=== PATIENT | female | born 1945 | race Caucasian/White ===

== ENCOUNTER 2018-09-14 00:20 | Emergency (ER) | payer MEDICARE ==
[~2018-09-14] VITALS: Ht 167.6 cm; Wt 90.9 kg
[~2018-09-14 00:20] MED LIST: ELIQUIS2.5 MG PO; HYDROCHLOROTHIA25 MG PO; HYDROCODONE-APA1 TAB PO; METOPROLOL TART50 MG PO; MS CONTIN30 MG PO; SYNTHROID88 MCG PO; XANAX1 MG PO
[2018-09-14 00:23] VITALS: Ht 167.6 cm; Wt 90.9 kg
[2018-09-14 01:39] LABS: BASOPHILS 0.2 % (0-2); EOSINOPHILS 0.6 % (0-7); HEMATOCRIT 31.6 % (36.0-48.0); HEMOGLOBIN 9.8 g/dL (12-16); IMMATURE GRANULOCYTES 0.2 % (0-5); MCH 24.1 pg (26.0-34.0); MCV 77.8 fL (80.0-100.0); MEAN PLATELET VOLUME 9.5 fL (7.4-10.4); MONOCYTES 15.5 % (2-11); NEUTROPHILS 52.5 % (40-80); PLATELET COUNT 383 10x3/uL (130-400); RBC 4.06 10x6/uL (4.00-5.40); RDW 15.8 % (11.5-14.5); WBC 9.5 10x3/uL (4.8-10.8)
[2018-09-14 01:52] LABS: ALBUMIN 3.3 g/dL (3.4-5.0); ALKALINE PHOSPHATASE 87 U/L (46-116); ALT (SGPT) 17 U/L (10-68); BILIRUBIN - TOTAL 0.85 mg/dL (0.2-1.3); CALC OSMOLALITY 278 mosm/kg (275-300); CALCIUM 8.9 mg/dL (8.5-10.1); CARBON DIOXIDE 25.1 mmol/L (21.0-32.0); CHLORIDE - SERUM 104 mmol/L (98-107); CREATININE - SERUM 0.8 mg/dL (0.6-1.3); GLUCOSE 104 mg/dL (74-106); POTASSIUM - SERUM 4.2 mmol/L (3.5-5.1); SODIUM 138 mmol/L (136-145); UREA NITROGEN 20 mg/dL (7-18); eGFR NON AFRICAN AMERICAN 75 mL/min (90-120)
[2018-09-14 02:03] LABS: APPEARANCE CLEAR (CLEAR); BILIRUBIN NEGATIVE (NEGATIVE); COLOR YELLOW (YELLOW); GLUCOSE NEGATIVE (NEGATIVE); KETONE NEGATIVE (NEGATIVE); NITRITE NEGATIVE (NEGATIVE); PROTEIN NEGATIVE (NEGATIVE); SPECIFIC GRAVITY 1.015 (1.005-1.020); UROBILINOGEN NORMAL (NORMAL)
[2018-09-14] MEDS ORDERED: ATIVAN1 MG PO (04:00)
[2018-09-14 04:53] VITALS: BP 168/70
== END 2018-09-14 04:25 | disposition home or self-care (01) ==
LOC: D.ER 00:20
PROVIDERS: Family Medicine
DX: F41.9 Anxiety disorder, unspecified (principal); R53.1 Weakness; I10 Essential (primary) hypertension

== ENCOUNTER 2018-11-09 13:17 | Inpatient (IN) | payer MEDICARE ==
[~2018-11-09] VITALS: Ht 167.6 cm; Wt 83.9 kg
[~2018-11-09 13:17] MED LIST changes: +ATIVAN1 MG PO; -HYDROCODONE-APA1 TAB PO; +NORCO PO
[2018-11-09 14:06] VITALS: BP 165/78
[2018-11-09 14:14] LABS: APPEARANCE CLEAR (CLEAR); COLOR YELLOW (YELLOW)
[2018-11-09 14:15] LABS: BILIRUBIN NEGATIVE (NEGATIVE); GLUCOSE NEGATIVE (NEGATIVE); KETONE NEGATIVE (NEGATIVE); NITRITE NEGATIVE (NEGATIVE); PROTEIN 1+ mg/dL (NEGATIVE); UROBILINOGEN NORMAL (NORMAL)
[2018-11-09 14:21] LABS: BACTERIA MODERATE /hpf (NONE SEEN); EPITHELIAL CELLS 0-5 /hpf (0-5); MUCUS <1+ /lpf (NONE SEEN); RED CELLS - URINE 0-5 /hpf (0-5); WHITE CELLS - URINE 0-5 /hpf (0-5)
[2018-11-09 14:42] LABS: BASOPHILS 0.1 % (0-2); EOSINOPHILS 0.4 % (0-7); HEMATOCRIT 32.7 % (36.0-48.0); HEMOGLOBIN 10.1 g/dL (12-16); IMMATURE GRANULOCYTES 0.4 % (0-5); LYMPHOCYTES 26.2 % (15-50); MCH 22.5 pg (26.0-34.0); MCHC 30.9 g/dL (31.0-37.0); MEAN PLATELET VOLUME 9.2 fL (7.4-10.4); NEUTROPHILS 64.9 % (40-80); RBC 4.48 10x6/uL (4.00-5.40); RDW 17.7 % (11.5-14.5); WBC 8.3 10x3/uL (4.8-10.8)
[2018-11-09 14:43] LABS: PLATELET COUNT 746 10x3/uL (130-400)
[2018-11-09 14:46] LABS: ALBUMIN 2.9 g/dL (3.4-5.0); ANION GAP 14.2 mmol/L (8-16); BILIRUBIN - TOTAL 0.55 mg/dL (0.2-1.3); CALCIUM 8.4 mg/dL (8.5-10.1); CARBON DIOXIDE 25.5 mmol/L (21.0-32.0); POTASSIUM - SERUM 3.7 mmol/L (3.5-5.1); PROTEIN - SERUM 6.8 g/dL (6.4-8.2)
[2018-11-09 15:54] VITALS: BP 157/68
[2018-11-09 16:00] VITALS: BP 156/74
[2018-11-09 17:00] VITALS: BP 160/78
[2018-11-09 19:55] VITALS: BP 132/81
[2018-11-09 22:15] VITALS: BP 160/81; BMI 29.9
[2018-11-10 04:24] VITALS: BP 155/66
[2018-11-10 08:57] VITALS: BP 133/68
[2018-11-10 10:10] LABS: APTT 28.8 SECONDS (22.8-39.4); INR 1.09 (0.85-1.17); PROTIME 13.6 SECONDS (11.6-15.0)
[2018-11-10 10:41] LABS: % SATURATION 8 % (15-55); IRON 25 ug/dl (35-150); TOTAL IRON BIND CAPACITY 300 ug/dl (260-445); UNSAT IRON BIND CAPACITY 275 ug/dl (150-375)
[2018-11-10 11:00] VITALS: BP 128/71
[2018-11-10 15:00] VITALS: BP 119/86
[2018-11-10 19:45] VITALS: BP 130/54
[2018-11-10 23:55] VITALS: BP 121/65
[2018-11-11 03:55] VITALS: BP 109/55
[2018-11-11 06:52] LABS: BASOPHILS 0.1 % (0-2); EOSINOPHILS 1.6 % (0-7); HEMATOCRIT 28.1 % (36.0-48.0); HEMOGLOBIN 8.3 g/dL (12-16); IMMATURE GRANULOCYTES 0.4 % (0-5); MCH 22.4 pg (26.0-34.0); MCHC 29.5 g/dL (31.0-37.0); MEAN PLATELET VOLUME 9.5 fL (7.4-10.4); MONOCYTES 10.5 % (2-11); NEUTROPHILS 50.4 % (40-80); PLATELET COUNT 649 10x3/uL (130-400); RBC 3.71 10x6/uL (4.00-5.40); RDW 18.1 % (11.5-14.5); WBC 7.4 10x3/uL (4.8-10.8)
[2018-11-11 06:59] LABS: MCV 75.7 fL (80.0-100.0)
[2018-11-11 07:12] LABS: CALC OSMOLALITY 281 mosm/kg (275-300); CALCIUM 7.8 mg/dL (8.5-10.1); CARBON DIOXIDE 25.7 mmol/L (21.0-32.0); CHLORIDE - SERUM 106 mmol/L (98-107); CREATININE - SERUM 0.8 mg/dL (0.6-1.3); GLUCOSE 87 mg/dL (74-106); POTASSIUM - SERUM 3.7 mmol/L (3.5-5.1); SODIUM 141 mmol/L (136-145); UREA NITROGEN 17 mg/dL (7-18); eGFR NON AFRICAN AMERICAN 75 mL/min (90-120)
[2018-11-11 08:35] VITALS: BP 120/58
[2018-11-11 11:38] VITALS: BP 135/63
--- NOTE | 2018-11-11 16:06 | MORECARE ---
CASE MANAGEMENT DISCHARGE SUMMARY PATIENT: MATA MCCONNELL UNIT: [id number] ADM DATE: 11/09/18 AGE: 73 : 47 SEX: F [facility] AUTHOR: CHARLES GÓMEZ PHYSICIAN: REFERRING PHYSICIAN: ALFREDO BRIGGS MD DATE OF SERVICE: 11/11/18 Discharge Plan Patient Name: MATA MCCONNELL Facility: [facility]:[place] : 1945 Planned Disposition: Inpatient Rehab Facility Anticipated Discharge Date: Discharge Date: Expected LOS: Initial Reviewer: [id number] Initial Review Date: 11/09/2018 Generated: 11/11/18 5:06 pm Patient Name: MATA MCCONNELL Page 92600 at 1606 All edits/amendments must be made on the electronic document DICTATION DATE: 11/11/181605 CONTRACT PROCESSOR: DONAL 11/11/18 160 RPT#: [id number] DC DATE: STATUS: ADM IN [facility] [address] [place] [address] END OF REPORT
--- NOTE | 2018-11-11 16:14 | MORECARE ---
CASE MANAGEMENT DISCHARGE SUMMARY PATIENT: MATA MCCONNELL UNIT: [id number] ADM DATE: 11/09/18 AGE: 73 : 47 SEX: F ROOM/BED: D.1205 AUTHOR: CHARLES GÓMEZ PHYSICIAN: REFERRING PHYSICIAN: ALFREDO BRIGGS MD DATE OF SERVICE: 11/11/18 Discharge Plan Patient Name: MATA MCCONNELL Facility: [facility]:[place] : 1945 Planned Disposition: Inpatient Rehab Facility Anticipated Discharge Date: Discharge Date: Expected LOS: Initial Reviewer: [id number] Initial Review Date: 11/09/2018 Generated: 11/11/18 5:14 pm DCPIA - Discharge Planning Initial Assessment Updated by [email or web address]: Nargis Sanchez on 11/11/18 4:09 pm * Is the patient Alert and Oriented? Yes * How many steps to enter\exit or inside your home? 12- 15 * PCP DR MATTEO CALABRESE * Pharmacy [facility] * Preadmission Environment Home Alone * ADLs Independent * Equipment Walker * Other Equipment DENIES ANY ADDITIONAL DME * List name and contact numbers for known caregivers / representatives who currently or will assist patient after discharge: VIJAY MCCONNELL- [facility]- [phone] * Verbal permission to speak to the caregivers and representatives has been obtained from the patient. Yes * Community resources currently utilized None * Please name any agencies selected above. NO SERVICES AT THIS TIME. HAS HAD [facility] IN THE PAST * Additional services required to return to the preadmission environment? Yes * Can the patient safely return to the preadmission environment? No * Has this patient been hospitalized within the prior 30 days at any hospital? No Last DP export: 11/11/18 3:06 p Patient Name: MATA MCCONNELL Page 98939 at 1614 All edits/amendments must be made on the electronic document DICTATION DATE: 11/11/18 1614 STUDIO PRODUCER: DONAL 11/11/184 RPT#: [id number] DC DATE: STATUS: ADM IN [place] [address] [place] [id number] END OF REPORT
--- NOTE | 2018-11-11 16:30 | MORECARE ---
CASE MANAGEMENT DISCHARGE SUMMARY PATIENT: MATA MCCONNELL UNIT: [id number] ADM DATE: 11/09/18 AGE: 73 : 47 SEX: F ROOM/BED: D.1205 AUTHOR: DALIA,DOC PHYSICIAN: REFERRING PHYSICIAN: ALFREDO BRIGGS MD DATE OF SERVICE: 11/11/18 Discharge Plan Patient Name: MATA MCCONNELL Facility: [facility]:[place] : 1945 Planned Disposition: Inpatient Rehab Facility Anticipated Discharge Date: Discharge Date: Expected LOS: Initial Reviewer: [email or web address] Initial Review Date: 11/09/2018 Generated: 11/11/18 5:30 pm Comments DCP- Discharge Planning Updated by [email or web address]: Nargis Sanchez on 11/11/18 3:[address] CM MET WITH THE PATIENT AND HER SON, VIJAY MCCONNELL, AT THE BEDSIDE. CM ASK HER PERMISSION TO SPEAK WITH HER W/ THE SON PRESENT. SHE GAVE PERMISSION FOR TO STAY. HE ASSIST HIS MOTHER. PATIENT IS PLEASANT AND A/O X4. SHE LOOKS TO HER SON WHEN SHE ANSWERS QUESTIONS. 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 THE SON IS IN THE PROCESS OF LOOKING FOR ANOTHER HOME. SAFER ENVIRONMENT AND LESS STAIRS. HE PLANS TO MOVE HER AROUND November. SHE LIKELY WILL NEED REHAB. THEY HAD DISCUSSED ACUTE REHAB WITH THE PHYSICAL THERAPIST. PATIENT AND SON AGREE THAT IS THE PLAN AT PRESENT. PHARMACY- [facility] ON [address]. PCP- DR MATTEO CALABRESE DME- WALKER OT EVAL ORDER OBTAINED. CM TO FOLLOW TO ASSIST W/ DC PLANNING. DCPIA - Discharge Planning Initial Assessment Updated by [id number]: Nargis Sanchez on 11/11/18 4:09 pm * Is the patient Alert and Oriented? Yes * How many steps to enter\\exit or inside your home? 12- 15 * PCP DR MATTEO CALABRESE * Pharmacy [facility] [address] * Preadmission Environment Home Alone * ADLs Independent * Equipment Walker * Other Equipment DENIES ANY ADDITIONAL DME * List name and contact numbers for known caregivers / representatives who currently or will assist patient after discharge: VIJAY MCCONNELL- SON- [phone] * Verbal permission to speak to the caregivers and representatives has been obtained from the patient. Yes * Community resources currently utilized None * Please name any agencies selected above. NO SERVICES AT THIS TIME. HAS HAD [facility] IN THE PAST * Additional services required to return to the preadmission environment? Yes * Can the patient safely return to the preadmission environment? No * Has this patient been hospitalized within the prior 30 days at any hospital? No Last DP export: 11/11/18 3:14 p Patient Name: MATA MCCONNELL Page 01789 at 1630 All edits/amendments must be made on the electronic document DICTATION DATE: 11/11/181629 ANATOMIC PATHOLOGIST: DONAL 11/11/18 163 RPT#: [id number] DC DATE: STATUS: ADM IN [facility] [address] [place] [address] END OF REPORT
[2018-11-11 20:00] VITALS: BP 140/55
[2018-11-12] VITALS (7 sets, daily range): BP systolic 103–128; BP diastolic 44–60
[2018-11-12 07:08] LABS: HEMATOCRIT 26.6 % (36.0-48.0); HEMOGLOBIN 8.1 g/dL (12-16); MCH 22.6 pg (26.0-34.0); MCHC 30.5 g/dL (31.0-37.0); MCV 74.1 fL (80.0-100.0); MEAN PLATELET VOLUME 9.5 fL (7.4-10.4); PLATELET COUNT 584 10x3/uL (130-400); RBC 3.59 10x6/uL (4.00-5.40); RDW 17.8 % (11.5-14.5); WBC 6.7 10x3/uL (4.8-10.8)
[2018-11-12 07:25] LABS: CALC OSMOLALITY 274 mosm/kg (275-300); CALCIUM 7.8 mg/dL (8.5-10.1); CARBON DIOXIDE 26.8 mmol/L (21.0-32.0); CHLORIDE - SERUM 103 mmol/L (98-107); CREATININE - SERUM 0.7 mg/dL (0.6-1.3); GLUCOSE 89 mg/dL (74-106); POTASSIUM - SERUM 3.5 mmol/L (3.5-5.1); SODIUM 138 mmol/L (136-145); UREA NITROGEN 13 mg/dL (7-18); eGFR NON AFRICAN AMERICAN 87 mL/min (90-120)
[2018-11-12 08:16] LABS: FOLATE (FOLIC ACID) - SERUM 8.6 ng/mL (>3.0)
[2018-11-12 08:56] LABS: LYMPHOCYTES 31 % (15-50); MONOCYTES 12 % (2-11); NEUTROPHILS 54 % (40-80)
[2018-11-12 08:57] LABS: HYPOCHROMASIA OCC; PLATELET ESTIMATE INCREASED
[2018-11-13 04:30] VITALS: BP 122/53
[2018-11-13 06:07] LABS: CALC OSMOLALITY 273 mosm/kg (275-300); CALCIUM 8.2 mg/dL (8.5-10.1); CARBON DIOXIDE 26.4 mmol/L (21.0-32.0); CHLORIDE - SERUM 102 mmol/L (98-107); CREATININE - SERUM 0.7 mg/dL (0.6-1.3); GLUCOSE 106 mg/dL (74-106); POTASSIUM - SERUM 3.7 mmol/L (3.5-5.1); SODIUM 136 mmol/L (136-145); eGFR NON AFRICAN AMERICAN 87 mL/min (90-120)
[2018-11-13 06:09] LABS: BASOPHILS 0.2 % (0-2); EOSINOPHILS 1.6 % (0-7); HEMATOCRIT 24.4 % (36.0-48.0); IMMATURE GRANULOCYTES 0.4 % (0-5); LYMPHOCYTES 28.1 % (15-50); MCH 22.5 pg (26.0-34.0); MCHC 30.3 g/dL (31.0-37.0); MCV 74.2 fL (80.0-100.0); MEAN PLATELET VOLUME 9.6 fL (7.4-10.4); MONOCYTES 12.4 % (2-11); NEUTROPHILS 57.3 % (40-80); PLATELET COUNT 533 10x3/uL (130-400); RBC 3.29 10x6/uL (4.00-5.40); RDW 18.1 % (11.5-14.5); WBC 5.6 10x3/uL (4.8-10.8)
[2018-11-13 06:12] LABS: HEMOGLOBIN 7.4 g/dL (12-16); UREA NITROGEN 17 mg/dL (7-18)
[2018-11-13 09:50] VITALS: BP 130/67
[2018-11-13 20:00] VITALS: BP 118/52
[2018-11-14] VITALS (7 sets, daily range): BP systolic 112–166; BP diastolic 44–80; Ht 167.6 cm; Wt 83.9 kg
[2018-11-14 07:50] LABS: BASOPHILS 0.5 % (0-2); EOSINOPHILS 2.9 % (0-7); IMMATURE GRANULOCYTES 0.2 % (0-5); LYMPHOCYTES 36.9 % (15-50); MCH 24.6 pg (26.0-34.0); MCHC 31.8 g/dL (31.0-37.0); MEAN PLATELET VOLUME 9.6 fL (7.4-10.4); MONOCYTES 13.8 % (2-11); NEUTROPHILS 45.7 % (40-80); PLATELET COUNT 505 10x3/uL (130-400); RDW 18.3 % (11.5-14.5); WBC 4.2 10x3/uL (4.8-10.8)
[2018-11-14 07:51] LABS: HEMATOCRIT 31.8 % (36.0-48.0); HEMOGLOBIN 10.1 g/dL (12-16); MCV 77.6 fL (80.0-100.0)
[2018-11-14 07:52] LABS: CALC OSMOLALITY 277 mosm/kg (275-300); CALCIUM 8.6 mg/dL (8.5-10.1); CARBON DIOXIDE 26.8 mmol/L (21.0-32.0); CHLORIDE - SERUM 105 mmol/L (98-107); CREATININE - SERUM 0.6 mg/dL (0.6-1.3); GLUCOSE 87 mg/dL (74-106); SODIUM 140 mmol/L (136-145); UREA NITROGEN 13 mg/dL (7-18); eGFR NON AFRICAN AMERICAN > 90 mL/min (90-120)
[2018-11-14 07:56] LABS: POTASSIUM - SERUM 4.5 mmol/L (3.5-5.1)
--- NOTE | 2018-11-14 14:38 | MORECARE ---
CASE MANAGEMENT DISCHARGE SUMMARY PATIENT: MATA MCCONNELL UNIT: [id number] ADM DATE: 11/09/18 AGE: 73 : 47 SEX: F ROOM/BED: D.1205 AUTHOR: DALIA,DOC PHYSICIAN: REFERRING PHYSICIAN: ALFREDO BRIGGS MD DATE OF SERVICE: 11/14/18 Discharge Plan Patient Name: MATA MCCONNELL Facility: [facility]:[place] : 1945 Planned Disposition: Inpatient Rehab Facility Anticipated Discharge Date: Discharge Date: Expected LOS: Initial Reviewer: [id number] Initial Review Date: 11/09/2018 Generated: 11/14/18 3:38 pm Comments DCP- Discharge Planning Updated by [email or web address]: Yenny Long on 11/14/18 1:[address] Patient Name: MATA MCCONNELL Admission Status: ER Accout number: [id number] Admission Date: 11-09-2018 : 1945 Admission Diagnosis:PAIN IN LEFT ANKLE AND JOINTS OF LEFT FOOT Attending: ALFREDO BRIGGS Current LOS: 5 Anticipated DC Date: Planned Disposition: Inpatient Rehab Facility Primary Insurance: [employer] CHOICE PPO MCR ADVANT Discharge Planning Comments: CM SPOKE WITH INSURANCE COMPANY AND P2P DONE WITH DR. BRANNON TO SEE IF APPROVED FOR INPT REHAB. DR BRANNON STATES INS SAID THEY WILL APPROVE SNF. REFERALL SENT TO [place] AT [facility] FOR SNF. CM WILL FOLLOW AND ASSIST NEEDED WITH DC PLANNING/NEEDS. Business Excellence Leader: Yenny Long DCP- Discharge Planning Updated by [id number]: Nargis Sanchez on 11/11/18 3:[address] CM MET WITH THE PATIENT AND HER SON, VIJAY MCCONNELL, AT THE BEDSIDE. CM ASK HER PERMISSION TO SPEAK WITH HER W/ THE SON PRESENT. SHE GAVE PERMISSION FOR TO STAY. HE ASSIST HIS MOTHER. PATIENT IS PLEASANT AND A/O X4. SHE LOOKS TO HER SON WHEN SHE ANSWERS QUESTIONS. 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 THE SON IS IN THE PROCESS OF LOOKING FOR ANOTHER HOME. SAFER ENVIRONMENT AND LESS STAIRS. HE PLANS TO MOVE HER AROUND November. SHE LIKELY WILL NEED REHAB. THEY HAD DISCUSSED ACUTE REHAB WITH THE PHYSICAL THERAPIST. PATIENT AND SON AGREE THAT IS THE PLAN AT PRESENT. PHARMACY- [facility] ON [address]. PCP- DR MATTEO CALABRESE DME- WALKER OT EVAL ORDER OBTAINED. CM TO FOLLOW TO ASSIST W/ DC PLANNING. DCPIA - Discharge Planning Initial Assessment Updated by [id number]: Nargis Sanchez on 11/11/18 4:09 pm * Is the patient Alert and Oriented? Yes * How many steps to enter\\exit or inside your home? 12- 15 * PCP DR MATTEO CALABRESE * Pharmacy [facility] [address] * Preadmission Environment Home Alone * ADLs Independent * Equipment Walker * Other Equipment DENIES ANY ADDITIONAL DME * List name and contact numbers for known caregivers / representatives who currently or will assist patient after discharge: VIJAY MCCONNELL- SON- [phone] * Verbal permission to speak to the caregivers and representatives has been obtained from the patient. Yes * Community resources currently utilized None * Please name any agencies selected above. NO SERVICES AT THIS TIME. HAS HAD [employer] [facility] [employer] IN THE PAST * Additional services required to return to the preadmission environment? Yes * Can the patient safely return to the preadmission environment? No * Has this patient been hospitalized within the prior 30 days at any hospital? No External Providers External Provider: [facility] Next Contact Date: Service Request Date: Service Type: Resolution: Reviewer: Comments: Coverage Notice Reviewer: [id number] Alexandria Long Notice Issued Date-Time: 11/13/2018 8:49 Notice Type: IM Discharge Notice Notice Delivered To: Patient Relationship to Patient: Self Planning Analyst Name: Delivery Method: HAND - Hand Delivered Rebeka Days: Prior Verbal Notification: Recipient Understood Notice: Yes Recipient Signature: Yes Med Rec Note Co-signed by Attending: Coverage Notice Comment: Reviewer: [id number] Alexandria Long Notice Issued Date-Time: 11/14/2018 14:27 Notice Type: Patient Choice Letter Notice Delivered To: Patient Relationship to Patient: Self Planning Analyst Name: Delivery Method: HAND - Hand Delivered Rebeka Days: Prior Verbal Notification: Recipient Understood Notice: Yes Recipient Signature: Yes Med Rec Note Co-signed by Attending: Coverage Notice Comment: PENELOPE OSBORN. Last DP export: 11/11/18 3:30 p Patient Name: MATA MCCONNELL Page 96300 at 1438 All edits/amendments must be made on the electronic document DICTATION DATE: 11/14/181436 BUFFING MACHINE OPERATOR SEMIAUTOMATIC: DONAL 11/14/181436 RPT#: [id number] DC DATE: STATUS: ADM IN [facility] [address] [place] [address] END OF REPORT
--- NOTE | 2018-11-14 14:46 | MORECARE ---
CASE MANAGEMENT DISCHARGE SUMMARY PATIENT: MATA MCCONNELL UNIT: [id number] ADM DATE: 11/09/18 AGE: 73 : 47 SEX: F ROOM/BED: D.1205 AUTHOR: DALIA,DOC PHYSICIAN: REFERRING PHYSICIAN: ALFREDO BRIGGS MD DATE OF SERVICE: 11/14/18 Discharge Plan Patient Name: MATA MCCONNELL Facility: [facility]:[place] : 1945 Planned Disposition: Inpatient Rehab Facility Anticipated Discharge Date: Discharge Date: Expected LOS: Initial Reviewer: [email or web address] Initial Review Date: 11/09/2018 Generated: 11/14/18 3:46 pm Comments DCP- Discharge Planning Updated by [id number]: Yenny Long on 11/14/18 1:[address] Patient Name: MATA MCCONNELL Admission Status: ER Accout number: [id number] Admission Date: 11-09-2018 : 1945 Admission Diagnosis:PAIN IN LEFT ANKLE AND JOINTS OF LEFT FOOT Attending: ALFREDO BRIGGS Current LOS: 5 Anticipated DC Date: Planned Disposition: Inpatient Rehab Facility Primary Insurance: [employer] CHOICE PPO MCR ADVANT Discharge Planning Comments: CM SPOKE WITH INSURANCE COMPANY AND P2P DONE WITH DR. BRANNON TO SEE IF APPROVED FOR INPT REHAB. DR BRANNON STATES INS SAID THEY WILL APPROVE SNF. REFERALL SENT TO [place] [facility] FOR SNF. CM WILL FOLLOW AND ASSIST NEEDED WITH DC PLANNING/NEEDS. Diesel Dinkey Engineer: Yenny Long DCP- Discharge Planning Updated by [id number]: Nargis Sanchez on 11/11/18 3:[address] CM MET WITH THE PATIENT AND HER SON, VIJAY MCCONNELL, AT THE BEDSIDE. CM ASK HER PERMISSION TO SPEAK WITH HER W/ THE SON PRESENT. SHE GAVE PERMISSION FOR TO STAY. HE ASSIST HIS MOTHER. PATIENT IS PLEASANT AND A/O X4. SHE LOOKS TO HER SON WHEN SHE ANSWERS QUESTIONS. 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 THE SON IS IN THE PROCESS OF LOOKING FOR ANOTHER HOME. SAFER ENVIRONMENT AND LESS STAIRS. HE PLANS TO MOVE HER AROUND November. SHE LIKELY WILL NEED REHAB. THEY HAD DISCUSSED ACUTE REHAB WITH THE PHYSICAL THERAPIST. PATIENT AND SON AGREE THAT IS THE PLAN AT PRESENT. PHARMACY- [facility] ON [address]. PCP- DR MATTEO CALABRESE DME- WALKER OT EVAL ORDER OBTAINED. CM TO FOLLOW TO ASSIST W/ DC PLANNING. DCPIA - Discharge Planning Initial Assessment Updated by [id number]: Nargis Sanchez on 11/11/18 4:09 pm * Is the patient Alert and Oriented? Yes * How many steps to enter\\exit or inside your home? 12- 15 * PCP DR MATTEO CALABRESE * Pharmacy [facility] [address] * Preadmission Environment Home Alone * ADLs Independent * Equipment Walker * Other Equipment DENIES ANY ADDITIONAL DME * List name and contact numbers for known caregivers / representatives who currently or will assist patient after discharge: VIJAY MCCONNELL- SON- [phone] * Verbal permission to speak to the caregivers and representatives has been obtained from the patient. Yes * Community resources currently utilized None * Please name any agencies selected above. NO SERVICES AT THIS TIME. HAS HAD [facility] [facility] [employer] IN THE PAST * Additional services required to return to the preadmission environment? Yes * Can the patient safely return to the preadmission environment? No * Has this patient been hospitalized within the prior 30 days at any hospital? No External Providers [facility] Next Contact Date: Service Request Date: Service Type: Resolution: Reviewer: Comments: Coverage Notice Reviewer: [email or web address] Alexandria Long Notice Issued Date-Time: 11/13/2018 8:49 Notice Type: IM Discharge Notice Notice Delivered To: Patient Relationship to Patient: Self Fast Food Team Member Name: Delivery Method: HAND - Hand Delivered Rebeka Days: Prior Verbal Notification: Recipient Understood Notice: Yes Recipient Signature: Yes Med Rec Note Co-signed by Attending: Coverage Notice Comment: Reviewer: [id number] Alexandria Long Notice Issued Date-Time: 11/14/2018 14:27 Notice Type: Patient Choice Letter Notice Delivered To: Patient Relationship to Patient: Self Fast Food Team Member Name: Delivery Method: HAND - Hand Delivered Rebeka Days: Prior Verbal Notification: Recipient Understood Notice: Yes Recipient Signature: Yes Med Rec Note Co-signed by Attending: Coverage Notice Comment: PENELOPE OSBORN. Ari DP export: 11/14/18 1:38 p Patient Name: MATA MCCONNELL Page 02342 at 1446 All edits/amendments must be made on the electronic document DICTATION DATE: 11/14/181445 CONTROL ROOM TENDER: DONAL 11/14/181445 RPT#: [id number] DC DATE: STATUS: ADM IN [facility] [address] [place] [address] END OF REPORT
--- NOTE | 2018-11-14 14:56 | MORECARE ---
CASE MANAGEMENT DISCHARGE SUMMARY PATIENT: MATA MCCONNELL UNIT: [id number] ADM DATE: 11/09/18 AGE: 73 : 47 SEX: F ROOM/BED: D.1205 AUTHOR: DALIA,DOC PHYSICIAN: REFERRING PHYSICIAN: ALFREDO BRIGGS MD DATE OF SERVICE: 11/14/18 Discharge Plan Patient Name: MATA MCCONNELL Facility: [facility]:[place] : 1945 Planned Disposition: Nursing Home Facility Anticipated Discharge Date: Discharge Date: Expected LOS: Initial Reviewer: [id number] Initial Review Date: 11/09/2018 Generated: 11/14/18 3:56 pm Comments DCP- Discharge Planning Updated by [email or web address]: Yenny Long on 11/14/18 1:[address] Patient Name: MATA MCCONNELL Admission Status: ER Accout number: [id number] Admission Date: 11-09-2018 : 1945 Admission Diagnosis:PAIN IN LEFT ANKLE AND JOINTS OF LEFT FOOT Attending: ALFREDO BRIGGS Current LOS: 5 Anticipated DC Date: Planned Disposition: Inpatient Rehab Facility Primary Insurance: [employer] CHOICE PPO MCR ADVANT Discharge Planning Comments: CM SPOKE WITH INSURANCE COMPANY AND P2P DONE WITH DR. BRANNON TO SEE IF APPROVED FOR INPT REHAB. DR BRANNON STATES INS SAID THEY WILL APPROVE SNF. REFERALL SENT TO [place] AT THE [facility] FOR SNF. CM WILL FOLLOW AND ASSIST NEEDED WITH DC PLANNING/NEEDS. Physician Primary Care Sports Medicine: Yenny Long DCP- Discharge Planning Updated by [id number]: Nargis Sanchez on 11/11/18 3:[address] CM MET WITH THE PATIENT AND HER SON, VIJAY MCCONNELL, AT THE BEDSIDE. CM ASK HER PERMISSION TO SPEAK WITH HER W/ THE SON PRESENT. SHE GAVE PERMISSION FOR TO STAY. HE ASSIST HIS MOTHER. PATIENT IS PLEASANT AND A/O X4. SHE LOOKS TO HER SON WHEN SHE ANSWERS QUESTIONS. 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 THE SON IS IN THE PROCESS OF LOOKING FOR ANOTHER HOME. SAFER ENVIRONMENT AND LESS STAIRS. HE PLANS TO MOVE HER AROUND November. SHE LIKELY WILL NEED REHAB. THEY HAD DISCUSSED ACUTE REHAB WITH THE PHYSICAL THERAPIST. PATIENT AND SON AGREE THAT IS THE PLAN AT PRESENT. PHARMACY- [facility] ON [address]. PCP- DR MATTEO CALABRESE DME- WALKER OT EVAL ORDER OBTAINED. CM TO FOLLOW TO ASSIST W/ DC PLANNING. DCPIA - Discharge Planning Initial Assessment Updated by [email or web address]: Nargis Sanchez on 11/11/18 4:09 pm * Is the patient Alert and Oriented? Yes * How many steps to enter\\exit or inside your home? 12- 15 * PCP DR MATTEO CALABRESE * Pharmacy [facility] [address] * Preadmission Environment Home Alone * ADLs Independent * Equipment Walker * Other Equipment DENIES ANY ADDITIONAL DME * List name and contact numbers for known caregivers / representatives who currently or will assist patient after discharge: VIJAY MCCONNELL- SON- [phone] * Verbal permission to speak to the caregivers and representatives has been obtained from the patient. Yes * Community resources currently utilized None * Please name any agencies selected above. NO SERVICES AT THIS TIME. HAS HAD [employer] IN THE PAST * Additional services required to return to the preadmission environment? Yes * Can the patient safely return to the preadmission environment? No * Has this patient been hospitalized within the prior 30 days at any hospital? No Coverage Notice Reviewer: [id number] Alexandria Long Notice Issued Date-Time: 11/13/2018 8:49 Notice Type: IM Discharge Notice Notice Delivered To: Patient Relationship to Patient: Self Multi Needle Machine Operator Name: Delivery Method: HAND - Hand Delivered Rebeka Days: Prior Verbal Notification: Recipient Understood Notice: Yes Recipient Signature: Yes Med Rec Note Co-signed by Attending: Coverage Notice Comment: Reviewer: [id number] Alexandria Long Notice Issued Date-Time: 11/14/2018 14:27 Notice Type: Patient Choice Letter Notice Delivered To: Patient Relationship to Patient: Self Multi Needle Machine Operator Name: Delivery Method: HAND - Hand Delivered Rebeka Days: Prior Verbal Notification: Recipient Understood Notice: Yes Recipient Signature: Yes Med Rec Note Co-signed by Attending: Coverage Notice Comment: PENELOPE OSBORN. Last DP export: 11/14/18 1:46 p Patient Name: MATA MCCONNELL Page 15093 at 1456 All edits/amendments must be made on the electronic document DICTATION DATE: 11/14/181454 RESIDENTIAL APPRAISER: DONAL 11/14/181454 RPT#: [id number] DC DATE: STATUS: ADM IN [facility] [address] [place] [address] END OF REPORT
[2018-11-15 04:38] VITALS: BP 137/64
[2018-11-15 07:51] LABS: CALC OSMOLALITY 277 mosm/kg (275-300); CALCIUM 8.5 mg/dL (8.5-10.1); CHLORIDE - SERUM 106 mmol/L (98-107); CREATININE - SERUM 0.7 mg/dL (0.6-1.3); GLUCOSE 102 mg/dL (74-106); SODIUM 139 mmol/L (136-145); UREA NITROGEN 12 mg/dL (7-18); eGFR NON AFRICAN AMERICAN 87 mL/min (90-120)
[2018-11-15 07:52] LABS: BASOPHILS 0.4 % (0-2); EOSINOPHILS 3.5 % (0-7); HEMATOCRIT 31.2 % (36.0-48.0); HEMOGLOBIN 9.7 g/dL (12-16); IMMATURE GRANULOCYTES 0.4 % (0-5); LYMPHOCYTES 33.6 % (15-50); MCH 24.3 pg (26.0-34.0); MCHC 31.1 g/dL (31.0-37.0); MCV 78.2 fL (80.0-100.0); MEAN PLATELET VOLUME 9.5 fL (7.4-10.4); MONOCYTES 14.3 % (2-11); NEUTROPHILS 47.8 % (40-80); PLATELET COUNT 440 10x3/uL (130-400); RBC 3.99 10x6/uL (4.00-5.40); RDW 18.8 % (11.5-14.5); WBC 4.9 10x3/uL (4.8-10.8)
[2018-11-15 08:00] VITALS: BP 146/64
[2018-11-15 08:22] LABS: POTASSIUM - SERUM 3.6 mmol/L (3.5-5.1)
--- NOTE | 2018-11-15 11:01 | MORECARE ---
CASE MANAGEMENT DISCHARGE SUMMARY PATIENT: MATA MCCONNELL UNIT: [id number] ADM DATE: 11/09/18 AGE: 73 : [birth year] SEX: F ROOM/BED: D.1205 AUTHOR: DALIA,DOC PHYSICIAN: REFERRING PHYSICIAN: ALFREDO BRIGGS MD DATE OF SERVICE: 11/15/18 Discharge Plan Patient Name: MATA MCCONNELL Facility: [facility]:[place] : 1945 Planned Disposition: Long Term Facility Anticipated Discharge Date: Discharge Date: Expected LOS: Initial Reviewer: [email or web address] Initial Review Date: 11/09/2018 Generated: 11/15/18 12:01 pm Comments DCP- Discharge Planning Updated by [id number]: Yenny Long on 11/14/18 1:[address] Patient Name: MATA MCCONNELL Admission Status: ER Accout number: [id number] Admission Date: 11-09-2018 : 1945 Admission Diagnosis:PAIN IN LEFT ANKLE AND JOINTS OF LEFT FOOT Attending: ALFREDO BRIGGS Current LOS: 5 Anticipated DC Date: Planned Disposition: Inpatient Rehab Facility Primary Insurance: [employer] CHOICE PPO MCR ADVANT Discharge Planning Comments: CM SPOKE WITH INSURANCE COMPANY AND P2P DONE WITH DR. BRANNON TO SEE IF APPROVED FOR INPT REHAB. DR BRANNON STATES INS SAID THEY WILL APPROVE SNF. REFERALL SENT TO [place] [facility] FOR SNF. CM WILL FOLLOW AND ASSIST NEEDED WITH DC PLANNING/NEEDS. Insurance Broker: Yenny Long DCP- Discharge Planning Updated by [email or web address]: Nargis Sanchez on 11/11/18 3:[address] CM MET WITH THE PATIENT AND HER SON, VIJAY MCCONNELL, AT THE BEDSIDE. CM ASK HER PERMISSION TO SPEAK WITH HER W/ THE SON PRESENT. SHE GAVE PERMISSION FOR TO STAY. HE ASSIST HIS MOTHER. PATIENT IS PLEASANT AND A/O X4. SHE LOOKS TO HER SON WHEN SHE ANSWERS QUESTIONS. 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 THE SON IS IN THE PROCESS OF LOOKING FOR ANOTHER HOME. SAFER ENVIRONMENT AND LESS STAIRS. HE PLANS TO MOVE HER AROUND November. SHE LIKELY WILL NEED REHAB. THEY HAD DISCUSSED ACUTE REHAB WITH THE PHYSICAL THERAPIST. PATIENT AND SON AGREE THAT IS THE PLAN AT PRESENT. PHARMACY- [facility] [address]. PCP- DR MATTEO CALABRESE DME- WALKER OT EVAL ORDER OBTAINED. CM TO FOLLOW TO ASSIST W/ DC PLANNING. DCPIA - Discharge Planning Initial Assessment Updated by [email or web address]: Nargis Sanchez on 11/11/18 4:09 pm * Is the patient Alert and Oriented? Yes * How many steps to enter\\exit or inside your home? 12- 15 * PCP DR MATTEO CALABRESE * Pharmacy [facility] [address] * Preadmission Environment Home Alone * ADLs Independent * Equipment Walker * Other Equipment DENIES ANY ADDITIONAL DME * List name and contact numbers for known caregivers / representatives who currently or will assist patient after discharge: VIJAY MCCONNELL- SON- [phone] * Verbal permission to speak to the caregivers and representatives has been obtained from the patient. Yes * Community resources currently utilized None * Please name any agencies selected above. NO SERVICES AT THIS TIME. HAS HAD [employer] [facility] [employer] IN THE PAST * Additional services required to return to the preadmission environment? Yes * Can the patient safely return to the preadmission environment? No * Has this patient been hospitalized within the prior 30 days at any hospital? No External Providers [facility] Next Contact Date: Service Request Date: Service Type: Resolution: Reviewer: Comments: Coverage Notice Reviewer: [id number] Alexandria Long Notice Issued Date-Time: 11/13/2018 8:49 Notice Type: IM Discharge Notice Notice Delivered To: Patient Relationship to Patient: Self Laborer Concrete Paving Name: Delivery Method: HAND - Hand Delivered Rebeka Days: Prior Verbal Notification: Recipient Understood Notice: Yes Recipient Signature: Yes Med Rec Note Co-signed by Attending: Coverage Notice Comment: Reviewer: [id number] [place] Long Notice Issued Date-Time: 11/14/2018 14:27 Notice Type: Patient Choice Letter Notice Delivered To: Patient Relationship to Patient: Self Laborer Concrete Paving Name: Delivery Method: HAND - Hand Delivered Rebeka Days: Prior Verbal Notification: Recipient Understood Notice: Yes Recipient Signature: Yes Med Rec Note Co-signed by Attending: Coverage Notice Comment: PENELOPE OSBORN. Ari DP export: 11/14/18 1:56 p Patient Name: MATA MCCONNELL Page 53972 at 1101 All edits/amendments must be made on the electronic document DICTATION DATE: 11/15/181100 DRIVERS' CASH CLERK: DONAL 11/15/181100 RPT#: [id number] DC DATE: STATUS: ADM IN [facility] [address] [place] [address] END OF REPORT
--- NOTE | 2018-11-15 11:08 | MORECARE ---
CASE MANAGEMENT DISCHARGE SUMMARY PATIENT: MATA MCCONNELL UNIT: [id number] ADM DATE: 11/09/18 AGE: 73 : 47 SEX: F ROOM/BED: D.1205 AUTHOR: DALIA,DOC PHYSICIAN: REFERRING PHYSICIAN: ALFREDO BRIGGS MD DATE OF SERVICE: 11/15/18 Discharge Plan Patient Name: MATA MCCONNELL Facility: [facility]:[place] : 1945 Planned Disposition: Alf Facility Anticipated Discharge Date: Discharge Date: Expected LOS: Initial Reviewer: [id number] Initial Review Date: 11/09/2018 Generated: 11/15/18 12:08 pm Comments DCP- Discharge Planning Updated by [id number]: Rosa Chan on 11/15/18 10:[address] CM received call from Michelle Anderson with the [facility] requesting updated therapy notes. CM faxed records as requested. Michelle states they are still waiting for insurance auth. Michelle informed CM that a NOELLE would be required d/t Dx of Anxiety disorder. CM will complete and fax NOELLE forms today. DCP- Discharge Planning Updated by [id number]: Yenny Long on 11/14/18 1:[address] Patient Name: MATA MCCONNELL Admission Status: ER Accout number: [id number] Admission Date: 11-09-2018 : 1945 Admission Diagnosis:PAIN IN LEFT ANKLE AND JOINTS OF LEFT FOOT Attending: ALFREDO BRIGGS Current LOS: 5 Anticipated DC Date: Planned Disposition: Inpatient Rehab Facility Primary Insurance: [employer] CHOICE PPO MCR ADVANT Discharge Planning Comments: CM SPOKE WITH INSURANCE COMPANY AND P2P DONE WITH DR. BRANNON TO SEE IF APPROVED FOR INPT REHAB. DR BRANNON STATES INS SAID THEY WILL APPROVE SNF. REFERALL SENT TO [place] AT THE [facility] FOR SNF. CM WILL FOLLOW AND ASSIST NEEDED WITH DC PLANNING/NEEDS. Mail Processor: Yenny Long DCP- Discharge Planning Updated by [email or web address]: Nargis Sanchez on 11/11/18 3:[address] CM MET WITH THE PATIENT AND HER SON, VIJAY MCCONNELL, AT THE BEDSIDE. CM ASK HER PERMISSION TO SPEAK WITH HER W/ THE SON PRESENT. SHE GAVE PERMISSION FOR TO STAY. HE ASSIST HIS MOTHER. PATIENT IS PLEASANT AND A/O X4. SHE LOOKS TO HER SON WHEN SHE ANSWERS QUESTIONS. 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 THE SON IS IN THE PROCESS OF LOOKING FOR ANOTHER HOME. SAFER ENVIRONMENT AND LESS STAIRS. HE PLANS TO MOVE HER AROUND November. SHE LIKELY WILL NEED REHAB. THEY HAD DISCUSSED ACUTE REHAB WITH THE PHYSICAL THERAPIST. PATIENT AND SON AGREE THAT IS THE PLAN AT PRESENT. PHARMACY- [facility] ON [address]. PCP- DR MATTEO CALABRESE DME- WALKER OT EVAL ORDER OBTAINED. CM TO FOLLOW TO ASSIST W/ DC PLANNING. DCPIA - Discharge Planning Initial Assessment Updated by [email or web address]: Nargis Costas on 11/11/18 4:09 pm * Is the patient Alert and Oriented? Yes * How many steps to enter\\exit or inside your home? 12- 15 * PCP DR MATTEO CALABRESE * Pharmacy [facility] [address] * Preadmission Environment Home Alone * ADLs Independent * Equipment Walker * Other Equipment DENIES ANY ADDITIONAL DME * List name and contact numbers for known caregivers / representatives who currently or will assist patient after discharge: VIJAY MCCONNELL- SON- [phone] * Verbal permission to speak to the caregivers and representatives has been obtained from the patient. Yes * Community resources currently utilized None * Please name any agencies selected above. NO SERVICES AT THIS TIME. HAS HAD [facility] IN THE PAST * Additional services required to return to the preadmission environment? Yes * Can the patient safely return to the preadmission environment? No * Has this patient been hospitalized within the prior 30 days at any hospital? No Coverage Notice Reviewer: [id number] Alexandria Long Notice Issued Date-Time: 11/13/2018 8:49 Notice Type: IM Discharge Notice Notice Delivered To: Patient Relationship to Patient: Self Forge Shop Supervisor Name: Delivery Method: HAND - Hand Delivered Rebeka Days: Prior Verbal Notification: Recipient Understood Notice: Yes Recipient Signature: Yes Med Rec Note Co-signed by Attending: Coverage Notice Comment: Reviewer: [id number] Alexandria Long Notice Issued Date-Time: 11/14/2018 14:27 Notice Type: Patient Choice Letter Notice Delivered To: Patient Relationship to Patient: Self Forge Shop Supervisor Name: Delivery Method: HAND - Hand Delivered Rebeka Days: Prior Verbal Notification: Recipient Understood Notice: Yes Recipient Signature: Yes Med Rec Note Co-signed by Attending: Coverage Notice Comment: PENELOPE OSBORN. Last DP export: 11/15/18 10:01 a Patient Name: MATA MCCONNELL Page [id number] at 1108 All edits/amendments must be made on the electronic document DICTATION DATE: 11/15/181107 WELL TENDER: DONAL 11/15/18 110 RPT#: [id number] DC DATE: STATUS: ADM IN [facility] [address] [place] [address] END OF REPORT
[2018-11-15 12:00] VITALS: BP 125/59
--- NOTE | 2018-11-15 15:56 | MORECARE ---
CASE MANAGEMENT DISCHARGE SUMMARY PATIENT: MATA MCCONNELL UNIT: [id number] ADM DATE: 11/09/18 AGE: 73 : 47 SEX: F ROOM/BED: D.1205 AUTHOR: DALIA,DOC PHYSICIAN: REFERRING PHYSICIAN: ALFREDO BRIGGS MD DATE OF SERVICE: 11/15/18 Discharge Plan Patient Name: MATA MCCONNELL Facility: [facility]:[place] : 1945 Planned Disposition: Alf Facility Anticipated Discharge Date: Discharge Date: Expected LOS: Initial Reviewer: [id number] Initial Review Date: 11/09/2018 Generated: 11/15/18 4:56 pm Comments DCP- Discharge Planning Updated by [email or web address]: Rosa Chan on 11/15/18 10:[address] CM received call from Michelle Anderson with the [facility] requesting updated therapy notes. CM faxed records as requested. Michelle states they are still waiting for insurance auth. Michelle informed CM that a NOELLE would be required d/t Dx of Anxiety disorder. CM will complete and fax NOELLE forms today. DCP- Discharge Planning Updated by [id number]: Yenny Long on 11/14/18 1:[address] Patient Name: MATA MCCONNELL Admission Status: ER Accout number: [id number] Admission Date: 11-09-2018 : 1945 Admission Diagnosis:PAIN IN LEFT ANKLE AND JOINTS OF LEFT FOOT Attending: ALFREDO BRIGGS Current LOS: 5 Anticipated DC Date: Planned Disposition: Inpatient Rehab Facility Primary Insurance: [employer] CHOICE PPO MCR ADVANT Discharge Planning Comments: CM SPOKE WITH INSURANCE COMPANY AND P2P DONE WITH DR. BRANNON TO SEE IF APPROVED FOR INPT REHAB. DR BRANNON STATES INS SAID THEY WILL APPROVE SNF. REFERALL SENT TO [place] AT THE [facility] FOR SNF. CM WILL FOLLOW AND ASSIST NEEDED WITH DC PLANNING/NEEDS. Tool And Die Manager: Yenny Long DCP- Discharge Planning Updated by [id number]: Nargis Sanchez on 11/11/18 3:[address] CM MET WITH THE PATIENT AND HER SON, VIJAY MCCONNELL, AT THE BEDSIDE. CM ASK HER PERMISSION TO SPEAK WITH HER W/ THE SON PRESENT. SHE GAVE PERMISSION FOR TO STAY. HE ASSIST HIS MOTHER. PATIENT IS PLEASANT AND A/O X4. SHE LOOKS TO HER SON WHEN SHE ANSWERS QUESTIONS. 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 THE SON IS IN THE PROCESS OF LOOKING FOR ANOTHER HOME. SAFER ENVIRONMENT AND LESS STAIRS. HE PLANS TO MOVE HER AROUND November. SHE LIKELY WILL NEED REHAB. THEY HAD DISCUSSED ACUTE REHAB WITH THE PHYSICAL THERAPIST. PATIENT AND SON AGREE THAT IS THE PLAN AT PRESENT. PHARMACY- [facility] ON [address]. PCP- DR MATTEO CALABRESE DME- WALKER OT EVAL ORDER OBTAINED. CM TO FOLLOW TO ASSIST W/ DC PLANNING. DCPIA - Discharge Planning Initial Assessment Updated by [email or web address]: Nargis Costas on 11/11/18 4:09 pm * Is the patient Alert and Oriented? Yes * How many steps to enter\\exit or inside your home? 12- 15 * PCP DR MATTEO CALABRESE * Pharmacy [facility] [address] * Preadmission Environment Home Alone * ADLs Independent * Equipment Walker * Other Equipment DENIES ANY ADDITIONAL DME * List name and contact numbers for known caregivers / representatives who currently or will assist patient after discharge: VIJAY MCCONNELL- SON- [phone] * Verbal permission to speak to the caregivers and representatives has been obtained from the patient. Yes * Community resources currently utilized None * Please name any agencies selected above. NO SERVICES AT THIS TIME. HAS HAD [facility] IN THE PAST * Additional services required to return to the preadmission environment? Yes * Can the patient safely return to the preadmission environment? No * Has this patient been hospitalized within the prior 30 days at any hospital? No External Providers External Provider: [facility] Next Contact Date: Service Request Date: Service Type: Resolution: Reviewer: Comments: Coverage Notice Reviewer: [id number] Alexandria Long Notice Issued Date-Time: 11/13/2018 8:49 Notice Type: IM Discharge Notice Notice Delivered To: Patient Relationship to Patient: Self Polysomnographer Name: Delivery Method: HAND - Hand Delivered Rebeka Days: Prior Verbal Notification: Recipient Understood Notice: Yes Recipient Signature: Yes Med Rec Note Co-signed by Attending: Coverage Notice Comment: Reviewer: [id number] Alexandria Long Notice Issued Date-Time: 11/14/2018 14:27 Notice Type: Patient Choice Letter Notice Delivered To: Patient Relationship to Patient: Self Polysomnographer Name: Delivery Method: HAND - Hand Delivered Rebeka Days: Prior Verbal Notification: Recipient Understood Notice: Yes Recipient Signature: Yes Med Rec Note Co-signed by Attending: Coverage Notice Comment: PENELOPE OSBORN. Last DP export: 11/15/18 10:08 a Patient Name: MATA MCCONNELL Page [id number] at 1556 All edits/amendments must be made on the electronic document DICTATION DATE: 11/15/18 1556 SCRIPT DEVELOPER: DONAL 11/15/18 1556 RPT#: [id number] DC DATE: STATUS: ADM IN [facility] [address] [place] [address] END OF REPORT
[2018-11-15 16:00] VITALS: BP 150/70
--- NOTE | 2018-11-15 16:12 | MORECARE ---
CASE MANAGEMENT DISCHARGE SUMMARY PATIENT: MATA MCCONNELL UNIT: [id number] ADM DATE: 11/09/18 AGE: 73 : 47 SEX: F ROOM/BED: D.1205 AUTHOR: DALIA,DOC PHYSICIAN: REFERRING PHYSICIAN: ALFREDO BRIGGS MD DATE OF SERVICE: 11/15/18 Discharge Plan Patient Name: MATA MCCONNELL Facility: [facility]:[place] : 1945 Planned Disposition: Group Home Facility Anticipated Discharge Date: Discharge Date: Expected LOS: Initial Reviewer: [id number] Initial Review Date: 11/09/2018 Generated: 11/15/18 5:12 pm Comments DCP- Discharge Planning Updated by [email or web address]: Rosa Chan on 11/15/18 3:[address] CM completed and faxed NOELLE. Awaiting determination. DCP- Discharge Planning Updated by [id number]: Rosa Chan on 11/15/18 10:[address] CM received call from Michelle Anderson with the [facility] requesting updated therapy notes. CM faxed records as requested. Michelle states they are still waiting for insurance auth. Michelle informed CM that a NOELLE would be required d/t Dx of Anxiety disorder. CM will complete and fax NOELLE forms today. DCP- Discharge Planning Updated by [id number]: Yenny Long on 11/14/18 1:[address] Patient Name: MATA MCCONNELL Admission Status: ER Accout number: [id number] Admission Date: 11-09-2018 : 1945 Admission Diagnosis:PAIN IN LEFT ANKLE AND JOINTS OF LEFT FOOT Attending: ALFREDO BRIGGS Current LOS: 5 Anticipated DC Date: Planned Disposition: Inpatient Rehab Facility Primary Insurance: [employer] CHOICE PPO MCR ADVANT Discharge Planning Comments: CM SPOKE WITH INSURANCE COMPANY AND P2P DONE WITH DR. BRANNON TO SEE IF APPROVED FOR INPT REHAB. DR BRANNON STATES INS SAID THEY WILL APPROVE SNF. REFERALL SENT TO [place] AT THE [facility] FOR SNF. CM WILL FOLLOW AND ASSIST NEEDED WITH DC PLANNING/NEEDS. Robotic Machine Tender Production: Yenny Long DCP- Discharge Planning Updated by [id number]: Nargis Sanchez on 11/11/18 3:[address] CM MET WITH THE PATIENT AND HER SON, VIJAY MCCONNELL, AT THE BEDSIDE. CM ASK HER PERMISSION TO SPEAK WITH HER W/ THE SON PRESENT. SHE GAVE PERMISSION FOR TO STAY. HE ASSIST HIS MOTHER. PATIENT IS PLEASANT AND A/O X4. SHE LOOKS TO HER SON WHEN SHE ANSWERS QUESTIONS. 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 THE SON IS IN THE PROCESS OF LOOKING FOR ANOTHER HOME. SAFER ENVIRONMENT AND LESS STAIRS. HE PLANS TO MOVE HER AROUND November. SHE LIKELY WILL NEED REHAB. THEY HAD DISCUSSED ACUTE REHAB WITH THE PHYSICAL THERAPIST. PATIENT AND SON AGREE THAT IS THE PLAN AT PRESENT. PHARMACY- [facility] ON [address]. PCP- DR MATTEO CALABRESE DME- WALKER OT EVAL ORDER OBTAINED. CM TO FOLLOW TO ASSIST W/ DC PLANNING. DCPIA - Discharge Planning Initial Assessment Updated by [id number]: Nargis Sanchez on 11/11/18 4:09 pm * Is the patient Alert and Oriented? Yes * How many steps to enter\\exit or inside your home? 12- 15 * PCP DR MATTEO CALABRESE * Pharmacy [facility] [address] * Preadmission Environment Home Alone * ADLs Independent * Equipment Walker * Other Equipment DENIES ANY ADDITIONAL DME * List name and contact numbers for known caregivers / representatives who currently or will assist patient after discharge: VIJAY MCCONNELL- SON- [phone] * Verbal permission to speak to the caregivers and representatives has been obtained from the patient. Yes * Community resources currently utilized None * Please name any agencies selected above. NO SERVICES AT THIS TIME. HAS HAD [facility] IN THE PAST * Additional services required to return to the preadmission environment? Yes * Can the patient safely return to the preadmission environment? No * Has this patient been hospitalized within the prior 30 days at any hospital? No Coverage Notice Reviewer: [id number] Alexandria Long Notice Issued Date-Time: 11/13/2018 8:49 Notice Type: IM Discharge Notice Notice Delivered To: Patient Relationship to Patient: Self Gift Shop Manager Name: Delivery Method: HAND - Hand Delivered Rebeka Days: Prior Verbal Notification: Recipient Understood Notice: Yes Recipient Signature: Yes Med Rec Note Co-signed by Attending: Coverage Notice Comment: Reviewer: [id number] Long Notice Issued Date-Time: 11/14/2018 14:27 Notice Type: Patient Choice Letter Notice Delivered To: Patient Relationship to Patient: Self Gift Shop Manager Name: Delivery Method: HAND - Hand Delivered Rebeka Days: Prior Verbal Notification: Recipient Understood Notice: Yes Recipient Signature: Yes Med Rec Note Co-signed by Attending: Coverage Notice Comment: PENELOPE IRENA. Last DP export: 11/15/18 2:56 p Patient Name: MATA MCCONNELL Page [id number] at 1612 All edits/amendments must be made on the electronic document DICTATION DATE: 11/15/18 1611 SKILLED TRADES TEACHER: DONAL 11/15/18 1611 RPT#: [id number] DC DATE: STATUS: ADM IN [facility] [address] [place] [address] END OF REPORT
[2018-11-15 19:00] VITALS: BP 138/72
[2018-11-16] VITALS: BP 127/69
[2018-11-16 04:00] VITALS: BP 112/44
[2018-11-16 05:24] LABS: BASOPHILS 0.2 % (0-2); EOSINOPHILS 4.1 % (0-7); HEMATOCRIT 31.6 % (36.0-48.0); HEMOGLOBIN 9.8 g/dL (12-16); LYMPHOCYTES 42.6 % (15-50); MCH 24.3 pg (26.0-34.0); MCV 78.4 fL (80.0-100.0); MEAN PLATELET VOLUME 9.1 fL (7.4-10.4); MONOCYTES 12.2 % (2-11); NEUTROPHILS 40.9 % (40-80); PLATELET COUNT 437 10x3/uL (130-400); RBC 4.03 10x6/uL (4.00-5.40); WBC 4.2 10x3/uL (4.8-10.8)
[2018-11-16 05:57] LABS: CALC OSMOLALITY 278 mosm/kg (275-300); CALCIUM 8.4 mg/dL (8.5-10.1); CARBON DIOXIDE 26.1 mmol/L (21.0-32.0); CHLORIDE - SERUM 104 mmol/L (98-107); CREATININE - SERUM 0.8 mg/dL (0.6-1.3); GLUCOSE 91 mg/dL (74-106); POTASSIUM - SERUM 3.9 mmol/L (3.5-5.1); SODIUM 140 mmol/L (136-145); UREA NITROGEN 13 mg/dL (7-18); eGFR NON AFRICAN AMERICAN 75 mL/min (90-120)
[2018-11-16 07:57] VITALS: BP 157/86
--- NOTE | 2018-11-16 14:00 | MORECARE ---
CASE MANAGEMENT DISCHARGE SUMMARY PATIENT: MATA MCCONNELL UNIT: [id number] ADM DATE: 11/09/18 AGE: 73 : 47 SEX: F ROOM/BED: D.1205 AUTHOR: DALIA,DOC PHYSICIAN: REFERRING PHYSICIAN: ALFREDO BRIGGS MD DATE OF SERVICE: 11/16/18 Discharge Plan Patient Name: MATA MCCONNELL Facility: [facility]:[place] : 1945 Planned Disposition: Long-Term Facility Anticipated Discharge Date: Discharge Date: Expected LOS: Initial Reviewer: [id number] Initial Review Date: 11/09/2018 Generated: 11/16/18 3:00 pm Comments DCP- Discharge Planning Updated by [email or web address]: Yenny Long on 11/16/18 12:[address] Patient Name: MATA MCCONNELL Admission Status: ER Accout number: [id number] Admission Date: 11-09-2018 : 1945 Admission Diagnosis:PAIN IN LEFT ANKLE AND JOINTS OF LEFT FOOT Attending: ALFREDO BRIGGS Current LOS: 7 Anticipated DC Date: Planned Disposition: Long-Term Facility Primary Insurance: [employer] CHOICE PPO MCR ADVANT Discharge Planning Comments: CM SPOKE WITH PATIENT AND SHE STATES HER LIVING CONDITIONS ARE NOT GOOD. STATES THE HOUSE/APT IS INFESTED WITH RATS, SHE HAS NO TRANSPORTATION. CM TRIED CALLING APS AT BUT SOMETHING IS WRONG WITH THEIR CALL CENTER. CM WILL NEED TO FOLLOW UP WITH THIS BEFORE HER DISCHARGE OR PASS THE INFO ON TO THE ASSISTED FACILITY. SHE ALSO STATES SHE NEEDS HELP WITH GETTING HOUSING ASSISTANCE, FOOD STAMPS, AND OTHER SERVICES. CM WILL GIVE HER INFORMATION ON HOW TO OBTAIN THESE SERVICES. Heel Turner: Yenny Long DCP- Discharge Planning Updated by [id number]: Rosa Chan on 11/15/18 3:[address] CM completed and faxed NOELLE. Awaiting determination. DCP- Discharge Planning Updated by [id number]: Rosa Chan on 11/15/18 10:[address] CM received call from Michelle Anderson with the [facility] requesting updated therapy notes. CM faxed records as requested. Michelle states they are still waiting for insurance auth. Michelle informed CM that a NOELLE would be required d/t Dx of Anxiety disorder. CM will complete and fax NOELLE forms today. DCP- Discharge Planning Updated by [id number]: Yenny Long on 11/14/18 1:[address] Patient Name: MATA MCCONNELL Admission Status: ER Accout number: [id number] Admission Date: 11-09-2018 : 1945 Admission Diagnosis:PAIN IN LEFT ANKLE AND JOINTS OF LEFT FOOT Attending: ALFREDO BRIGGS Current LOS: 5 Anticipated DC Date: Planned Disposition: Inpatient Rehab Facility Primary Insurance: [employer] CHOICE PPO MCR ADVANT Discharge Planning Comments: CM SPOKE WITH INSURANCE COMPANY AND P2P DONE WITH DR. BRANNON TO SEE IF APPROVED FOR INPT REHAB. DR BRANNON STATES INS SAID THEY WILL APPROVE SNF. REFERALL SENT TO [place] AT [facility] FOR SNF. CM WILL FOLLOW AND ASSIST NEEDED WITH DC PLANNING/NEEDS. Heel Turner: Yenny Long DCP- Discharge Planning Updated by [id number]: Nargis Sanchez on 11/11/18 3:[address] CM MET WITH THE PATIENT AND HER SON, VIJAY MCCONNELL, AT THE BEDSIDE. CM ASK HER PERMISSION TO SPEAK WITH HER W/ THE SON PRESENT. SHE GAVE PERMISSION FOR HM TO STAY. HE ASSIST HIS MOTHER. PATIENT IS PLEASANT AND A/O X4. SHE LOOKS TO HER SON WHEN SHE ANSWERS QUESTIONS. 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 THE SON IS IN THE PROCESS OF LOOKING FOR ANOTHER HOME. SAFER ENVIRONMENT AND LESS STAIRS. HE PLANS TO MOVE HER AROUND November. SHE LIKELY WILL NEED REHAB. THEY HAD DISCUSSED ACUTE REHAB WITH THE PHYSICAL THERAPIST. PATIENT AND SON AGREE THAT IS THE PLAN AT PRESENT. PHARMACY- [facility] ON [address]. PCP- DR MATTEO LORENZANA- WALKER OT EVAL ORDER OBTAINED. CM TO FOLLOW TO ASSIST W/ DC PLANNING. DCPIA - Discharge Planning Initial Assessment Updated by [id number]: Nargis Sanchez on 11/11/18 4:09 pm * Is the patient Alert and Oriented? Yes * How many steps to enter\\exit or inside your home? 12- 15 * PCP DR MATTEO CALABRESE * Pharmacy [facility] [address] * Preadmission Environment Home Alone * ADLs Independent * Equipment Walker * Other Equipment DENIES ANY ADDITIONAL DME * List name and contact numbers for known caregivers / representatives who currently or will assist patient after discharge: VIJAY MCCONNELL- JAMES- [phone] * Verbal permission to speak to the caregivers and representatives has been obtained from the patient. Yes * Community resources currently utilized None * Please name any agencies selected above. NO SERVICES AT THIS TIME. HAS HAD [facility] IN THE PAST * Additional services required to return to the preadmission environment? Yes * Can the patient safely return to the preadmission environment? No * Has this patient been hospitalized within the prior 30 days at any hospital? No Coverage Notice Reviewer: [id number] Alexandria Long Notice Issued Date-Time: 11/13/2018 8:49 Notice Type: IM Discharge Notice Notice Delivered To: Patient Relationship to Patient: Self Olericulture Teacher Name: Delivery Method: HAND - Hand Delivered Rebeka Days: Prior Verbal Notification: Recipient Understood Notice: Yes Recipient Signature: Yes Med Rec Note Co-signed by Attending: Coverage Notice Comment: Reviewer: [id number] Long Notice Issued Date-Time: 11/14/2018 14:27 Notice Type: Patient Choice Letter Notice Delivered To: Patient Relationship to Patient: Self Olericulture Teacher Name: Delivery Method: HAND - Hand Delivered Rebeka Days: Prior Verbal Notification: Recipient Understood Notice: Yes Recipient Signature: Yes Med Rec Note Co-signed by Attending: Coverage Notice Comment: PENELOPE OSBORN. Last DP export: 11/15/18 3:12 p Patient Name: MATA MCCONNELL Page 12856 at 1400 All edits/amendments must be made on the electronic document DICTATION DATE: 11/16/18 1400 BRICK OFF BEARER: DONAL 11/16/18 1400 RPT#: [id number] DC DATE: STATUS: ADM IN [facility] [address] [place] [address] END OF REPORT
[2018-11-17 07:08] LABS: BASOPHILS 0.2 % (0-2); EOSINOPHILS 3.2 % (0-7); HEMATOCRIT 32.9 % (36.0-48.0); HEMOGLOBIN 10.2 g/dL (12-16); IMMATURE GRANULOCYTES 0.4 % (0-5); LYMPHOCYTES 40.6 % (15-50); MCH 24.6 pg (26.0-34.0); MCV 79.5 fL (80.0-100.0); MEAN PLATELET VOLUME 9.8 fL (7.4-10.4); MONOCYTES 8.6 % (2-11); PLATELET COUNT 418 10x3/uL (130-400); RBC 4.14 10x6/uL (4.00-5.40); RDW 19.7 % (11.5-14.5)
[2018-11-17 07:12] LABS: CALC OSMOLALITY 278 mosm/kg (275-300); CALCIUM 8.8 mg/dL (8.5-10.1); CARBON DIOXIDE 28.4 mmol/L (21.0-32.0); CHLORIDE - SERUM 105 mmol/L (98-107); CREATININE - SERUM 0.7 mg/dL (0.6-1.3); GLUCOSE 83 mg/dL (74-106); POTASSIUM - SERUM 4.1 mmol/L (3.5-5.1); SODIUM 140 mmol/L (136-145); UREA NITROGEN 14 mg/dL (7-18); eGFR NON AFRICAN AMERICAN 87 mL/min (90-120)
[2018-11-17 07:16] LABS: WBC 5.3 10x3/uL (4.8-10.8)
[2018-11-17 08:00] VITALS: BP 157/76
[2018-11-17 12:00] VITALS: BP 145/70
[2018-11-17 16:00] VITALS: BP 152/77; BP 168/74
--- NOTE | 2018-11-17 16:05 | MORECARE ---
CASE MANAGEMENT DISCHARGE SUMMARY PATIENT: MATA MCCONNELL UNIT: [id number] ADM DATE: 11/09/18 AGE: 73 : [birth year] SEX: F ROOM/BED: D.1205 AUTHOR: DALIA,DOC PHYSICIAN: REFERRING PHYSICIAN: ALFREDO BRIGGS MD DATE OF SERVICE: 11/17/18 Discharge Plan Patient Name: MATA MCCONNELL Facility: [facility]:[place] : 1945 Planned Disposition: Penitentiary Facility Anticipated Discharge Date: Discharge Date: Expected LOS: Initial Reviewer: [id number] Initial Review Date: 11/09/2018 Generated: 11/17/18 5:04 pm Comments DCP- Discharge Planning Updated by [id number]: Yenny Long on 11/17/18 3:[address] Patient Name: MATA MCCONNELL Admission Status: ER Accout number: [id number] Admission Date: 11-09-2018 : 1945 Admission Diagnosis:PAIN IN LEFT ANKLE AND JOINTS OF LEFT FOOT Attending: ALFREDO BRIGGS Current LOS: 8 Anticipated DC Date: Planned Disposition: Penitentiary Facility Primary Insurance: HUMANA CHOICE PPO [facility] ADVANT Discharge Planning Comments: CM LEFT VM FOR YENNY AT [facility] AT [phone]. CM EXPRESSED CONCERN ABOUT PATIENTS LIVING SITUATION AND LEFT A CALL BACK NUMBER. CM WILL FOLLOW AND ASSIST NEEDED WITH DC PLANNING/NEEDS. Off Track Betting Manager: Yenny Long DCP- Discharge Planning Updated by [id number]: Yenny Long on 11/16/18 12:[address] Patient Name: MATA MCCONNELL Admission Status: ER Accout number: [id number] Admission Date: 11-09-2018 : 1945 Admission Diagnosis:PAIN IN LEFT ANKLE AND JOINTS OF LEFT FOOT Attending: ALFREDO BRIGGS Current LOS: 7 Anticipated DC Date: Planned Disposition: Penitentiary Facility Primary Insurance: HUMANA CHOICE PPO [facility] ADVANT Discharge Planning Comments: CM SPOKE WITH PATIENT AND SHE STATES HER LIVING CONDITIONS ARE NOT GOOD. STATES THE HOUSE/APT IS INFESTED WITH RATS, SHE HAS NO TRANSPORTATION. CM TRIED CALLING [facility] AT BUT SOMETHING IS WRONG WITH THEIR CALL CENTER. CM WILL NEED TO FOLLOW UP WITH THIS BEFORE HER DISCHARGE OR PASS THE INFO ON TO THE HALF-WAY FACILITY. SHE ALSO STATES SHE NEEDS HELP WITH GETTING HOUSING ASSISTANCE, FOOD STAMPS, AND OTHER SERVICES. CM WILL GIVE HER INFORMATION ON HOW TO OBTAIN THESE SERVICES. Off Track Betting Manager: Yenny Long DCP- Discharge Planning Updated by [id number]: Rosa Chan on 11/15/18 3:[address] CM completed and faxed NOELLE. Awaiting determination. DCP- Discharge Planning Updated by [id number]: Rosa Chan on 11/15/18 10:[address] CM received call from Michelle Anderson with the [facility] requesting updated therapy notes. CM faxed records as requested. Michelle states they are still waiting for insurance auth. Michelle informed CM that a NOELLE would be required d/t Dx of Anxiety disorder. CM will complete and fax NOELLE forms today. DCP- Discharge Planning Updated by [id number]: Yenny Long on 11/14/18 1:[address] Patient Name: MATA MCCONNELL Admission Status: ER Accout number: [id number] Admission Date: 11-09-2018 : 1945 Admission Diagnosis:PAIN IN LEFT ANKLE AND JOINTS OF LEFT FOOT Attending: ALFREDO BRIGGS Current LOS: 5 Anticipated DC Date: Planned Disposition: Inpatient Rehab Facility Primary Insurance: HUMANA CHOICE PPO M[employer] ADVANT Discharge Planning Comments: CM SPOKE WITH INSURANCE COMPANY AND P2P DONE WITH DR. BRANNON TO SEE IF APPROVED FOR INPT REHAB. DR BRANNON STATES INS SAID THEY WILL APPROVE SNF. REFERALL SENT TO LEN AT THE [facility] FOR SNF. CM WILL FOLLOW AND ASSIST NEEDED WITH DC PLANNING/NEEDS. Off Track Betting Manager: Yenny Long DCP- Discharge Planning Updated by [id number]: Nargis Sanchez on 11/11/18 3:[address] CM MET WITH THE PATIENT AND HER SON, VIJAY MCCONNELL, AT THE BEDSIDE. CM ASK HER PERMISSION TO SPEAK WITH HER W/ THE SON PRESENT. SHE GAVE PERMISSION FOR TO STAY. HE ASSIST HIS MOTHER. PATIENT IS PLEASANT AND A/O X4. SHE LOOKS TO HER SON WHEN SHE ANSWERS QUESTIONS. 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 THE SON IS IN THE PROCESS OF LOOKING FOR ANOTHER HOME. SAFER ENVIRONMENT AND LESS STAIRS. HE PLANS TO MOVE HER AROUND November. SHE LIKELY WILL NEED REHAB. THEY HAD DISCUSSED ACUTE REHAB WITH THE PHYSICAL THERAPIST. PATIENT AND SON AGREE THAT IS THE PLAN AT PRESENT. PHARMACY- [facility] [address]. PCP- DR MATTEO CALABRESE DME- WALKER OT EVAL ORDER OBTAINED. CM TO FOLLOW TO ASSIST W/ DC PLANNING. DCPIA - Discharge Planning Initial Assessment Updated by [id number]: Nargis Costas on 11/11/18 4:09 pm * Is the patient Alert and Oriented? Yes * How many steps to enter\\exit or inside your home? 12- 15 * PCP DR MATTEO CALABRESE * Pharmacy [facility] [address] * Preadmission Environment Home Alone * ADLs Independent * Equipment Walker * Other Equipment DENIES ANY ADDITIONAL DME * List name and contact numbers for known caregivers / representatives who currently or will assist patient after discharge: VIJAY MCCONNELL- SON- [phone] * Verbal permission to speak to the caregivers and representatives has been obtained from the patient. Yes * Community resources currently utilized None * Please name any agencies selected above. NO SERVICES AT THIS TIME. HAS HAD [facility] IN THE PAST * Additional services required to return to the preadmission environment? Yes * Can the patient safely return to the preadmission environment? No * Has this patient been hospitalized within the prior 30 days at any hospital? No Coverage Notice Reviewer: [id number] Alexandria Long Notice Issued Date-Time: 11/13/2018 8:49 Notice Type: IM Discharge Notice Notice Delivered To: Patient Relationship to Patient: Self Rn Cardiac Name: Delivery Method: HAND - Hand Delivered Rebeka Days: Prior Verbal Notification: Recipient Understood Notice: Yes Recipient Signature: Yes Med Rec Note Co-signed by Attending: Coverage Notice Comment: Reviewer: [id number] Alexandria Long Notice Issued Date-Time: 11/14/2018 14:27 Notice Type: Patient Choice Letter Notice Delivered To: Patient Relationship to Patient: Self Rn Cardiac Name: Delivery Method: HAND - Hand Delivered Rebeka Days: Prior Verbal Notification: Recipient Understood Notice: Yes Recipient Signature: Yes Med Rec Note Co-signed by Attending: Coverage Notice Comment: PENELOPE OSBORN. Last DP export: 11/16/18 1:00 p Patient Name: MATA MCCONNELL Page [id number] at 1605 All edits/amendments must be made on the electronic document DICTATION DATE: 11/17/181603 LAUNDRY MANAGER: DONAL 11/17/181603 RPT#: [id number] DC DATE: STATUS: ADM IN [facility] [address] [place] [address] END OF REPORT
[2018-11-17 20:39] VITALS: BP 147/76
[2018-11-18 00:35] VITALS: BP 155/76
[2018-11-18 04:46] VITALS: BP 170/74
[2018-11-18 07:46] LABS: BASOPHILS 0.2 % (0-2); EOSINOPHILS 2.6 % (0-7); HEMATOCRIT 32.6 % (36.0-48.0); IMMATURE GRANULOCYTES 0.2 % (0-5); LYMPHOCYTES 20.7 % (15-50); MCHC 30.7 g/dL (31.0-37.0); MCV 78.4 fL (80.0-100.0); MEAN PLATELET VOLUME 9.6 fL (7.4-10.4); NEUTROPHILS 69.3 % (40-80); PLATELET COUNT 408 10x3/uL (130-400); RBC 4.16 10x6/uL (4.00-5.40); WBC 5.9 10x3/uL (4.8-10.8)
[2018-11-18 08:08] VITALS: BP 164/84
[2018-11-18 08:11] LABS: CALC OSMOLALITY 280 mosm/kg (275-300); CALCIUM 8.7 mg/dL (8.5-10.1); CARBON DIOXIDE 25.4 mmol/L (21.0-32.0); CHLORIDE - SERUM 106 mmol/L (98-107); GLUCOSE 99 mg/dL (74-106); POTASSIUM - SERUM 3.7 mmol/L (3.5-5.1); SODIUM 141 mmol/L (136-145); UREA NITROGEN 12 mg/dL (7-18)
[2018-11-18 08:13] LABS: CREATININE - SERUM 0.5 mg/dL (0.6-1.3); eGFR NON AFRICAN AMERICAN > 90 mL/min (90-120)
[2018-11-18 12:16] VITALS: BP 136/65
--- NOTE | 2018-11-18 12:19 | MORECARE ---
CASE MANAGEMENT DISCHARGE SUMMARY PATIENT: MATA MCCONNELL UNIT: [id number] ADM DATE: 11/09/18 AGE: 73 : [birth year] SEX: F ROOM/BED: D.1205 AUTHOR: DALIA,DOC PHYSICIAN: REFERRING PHYSICIAN: ALFREDO BRIGGS MD DATE OF SERVICE: 11/18/18 Discharge Plan Patient Name: MATA MCCONNELL Facility: [facility]:[place] : 1945 Planned Disposition: Correction Facility Anticipated Discharge Date: Discharge Date: Expected LOS: Initial Reviewer: [id number] Initial Review Date: 11/09/2018 Generated: 11/18/18 1:18 pm Comments DCP- Discharge Planning Updated by [email or web address]: Nargis Sanchez on 11/18/18 11:[address] LATE ENTRY 1045 TC TO [facility] JUNG TO ADVISE THE NOELLE DETERMINATION RETURNED. CLIENT IS A NON-PASRR CLIENT. CM FAXED COPY OF NOELLE AND CLINICAL UPDATE TO LEN AT [phone]. DCP- Discharge Planning Updated by [email or web address]: Yenny Long on 11/17/18 3:[address] Patient Name: MATA MCCONNELL Admission Status: ER Accout number: [id number] Admission Date: 11-09-2018 : 1945 Admission Diagnosis:PAIN IN LEFT ANKLE AND JOINTS OF LEFT FOOT Attending: ALFREDO BRIGGS Current LOS: 8 Anticipated DC Date: Planned Disposition: Correction Facility Primary Insurance: HUMANA CHOICE PPO MCR [facility] Discharge Planning Comments: CM LEFT VM FOR YENNY AT [facility] AT [phone]. CM EXPRESSED CONCERN ABOUT PATIENTS LIVING SITUATION AND LEFT A CALL BACK NUMBER. CM WILL FOLLOW AND ASSIST NEEDED WITH DC PLANNING/NEEDS. Fish Technologist: Yenny Long DCP- Discharge Planning Updated by [id number]: Yenny Long on 11/16/18 12:[address] Patient Name: MATA MCCONNELL Admission Status: ER Accout number: [id number] Admission Date: 11-09-2018 : 1945 Admission Diagnosis:PAIN IN LEFT ANKLE AND JOINTS OF LEFT FOOT Attending: ALFREDO BRIGGS Current LOS: 7 Anticipated DC Date: Planned Disposition: Correction Facility Primary Insurance: HUMANA CHOICE PPO MCR [employer] Discharge Planning Comments: CM SPOKE WITH PATIENT AND SHE STATES HER LIVING CONDITIONS ARE NOT GOOD. STATES THE HOUSE/APT IS INFESTED WITH RATS, SHE HAS NO TRANSPORTATION. CM TRIED CALLING [facility]PS AT BUT SOMETHING IS WRONG WITH THEIR CALL CENTER. CM WILL NEED TO FOLLOW UP WITH THIS BEFORE HER DISCHARGE OR PASS THE INFO ON TO THE INTERMEDIATE FACILITY. SHE ALSO STATES SHE NEEDS HELP WITH GETTING HOUSING ASSISTANCE, FOOD STAMPS, AND OTHER SERVICES. CM WILL GIVE HER INFORMATION ON HOW TO OBTAIN THESE SERVICES. Fish Technologist: Yenny Long DCP- Discharge Planning Updated by [id number]: Rosa Chan on 11/15/18 3:[address] CM completed and faxed NOELLE. Awaiting determination. DCP- Discharge Planning Updated by [id number]: Rosa Chan on 11/15/18 10:[address] CM received call from Michelle Anderson with the [facility] requesting updated therapy notes. CM faxed records as requested. Michelle states they are still waiting for insurance auth. Michelle informed CM that a NOELLE would be required d/t Dx of Anxiety disorder. CM will complete and fax NOELLE forms today. DCP- Discharge Planning Updated by [email or web address]: Yenny Long on 11/14/18 1:[address] Patient Name: MATA MCCONNELL Admission Status: ER Accout number: [id number] Admission Date: 11-09-2018 : 1945 Admission Diagnosis:PAIN IN LEFT ANKLE AND JOINTS OF LEFT FOOT Attending: ALFREDO BRIGGS Current LOS: 5 Anticipated DC Date: Planned Disposition: Inpatient Rehab Facility Primary Insurance: HU[employer]NA CHOICE PPO MCR [employer] Discharge Planning Comments: CM SPOKE WITH INSURANCE COMPANY AND P2P DONE WITH DR. BRANNON TO SEE IF APPROVED FOR INPT REHAB. DR BRANNON STATES INS SAID THEY WILL APPROVE SNF. REFERALL SENT TO [place] AT THE [facility] FOR SNF. CM WILL FOLLOW AND ASSIST NEEDED WITH DC PLANNING/NEEDS. Fish Technologist: Yenny Long DCP- Discharge Planning Updated by [id number]: Nargis Sanchez on 11/11/18 3:[address] CM MET WITH THE PATIENT AND HER SON, VIJAY MCCONNELL, AT THE BEDSIDE. CM ASK HER PERMISSION TO SPEAK WITH HER W/ THE SON PRESENT. SHE GAVE PERMISSION FOR HM TO STAY. HE ASSIST HIS MOTHER. PATIENT IS PLEASANT AND A/O X4. SHE LOOKS TO HER SON WHEN SHE ANSWERS QUESTIONS. 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 THE SON IS IN THE PROCESS OF LOOKING FOR ANOTHER HOME. SAFER ENVIRONMENT AND LESS STAIRS. HE PLANS TO MOVE HER AROUND November. SHE LIKELY WILL NEED REHAB. THEY HAD DISCUSSED ACUTE REHAB WITH THE PHYSICAL THERAPIST. PATIENT AND SON AGREE THAT IS THE PLAN AT PRESENT. PHARMACY- [facility] [address]. PCP- DR MATTEO CALABRESE DME- WALKER OT EVAL ORDER OBTAINED. CM TO FOLLOW TO ASSIST W/ DC PLANNING. DCPIA - Discharge Planning Initial Assessment Updated by [id number]: Nargis Costas on 11/11/18 4:09 pm * Is the patient Alert and Oriented? Yes * How many steps to enter\\exit or inside your home? 12- 15 * PCP DR MATTEO CALABRESE * Pharmacy [facility] [address] * Preadmission Environment Home Alone * ADLs Independent * Equipment Walker * Other Equipment DENIES ANY ADDITIONAL DME * List name and contact numbers for known caregivers / representatives who currently or will assist patient after discharge: VIJAY MCCONNELL- JAMES- [phone] * Verbal permission to speak to the caregivers and representatives has been obtained from the patient. Yes * Community resources currently utilized None * Please name any agencies selected above. NO SERVICES AT THIS TIME. HAS HAD [facility] IN THE PAST * Additional services required to return to the preadmission environment? Yes * Can the patient safely return to the preadmission environment? No * Has this patient been hospitalized within the prior 30 days at any hospital? No Coverage Notice Reviewer: [email or web address] Alexandria Long Notice Issued Date-Time: 11/13/2018 8:49 Notice Type: IM Discharge Notice Notice Delivered To: Patient Relationship to Patient: Self Instructor Of Education Name: Delivery Method: HAND - Hand Delivered Rebeka Days: Prior Verbal Notification: Recipient Understood Notice: Yes Recipient Signature: Yes Med Rec Note Co-signed by Attending: Coverage Notice Comment: Reviewer: [id number] Alexandria Long Notice Issued Date-Time: 11/14/2018 14:27 Notice Type: Patient Choice Letter Notice Delivered To: Patient Relationship to Patient: Self Instructor Of Education Name: Delivery Method: HAND - Hand Delivered Rebeka Days: Prior Verbal Notification: Recipient Understood Notice: Yes Recipient Signature: Yes Med Rec Note Co-signed by Attending: Coverage Notice Comment: PENELOPE OSBORN. Last DP export: 11/17/18 3:05 p Patient Name: MATA MCCONNELL Page 16100 at 1219 All edits/amendments must be made on the electronic document DICTATION DATE: 11/18/181217 SYSTEMS INTEGRATOR: DONAL 11/18/181217 RPT#: [id number] DC DATE: STATUS: ADM IN [facility] [address] [place] [address] END OF REPORT
[2018-11-18 17:10] LABS: AEROBE ID Final report (())
[2018-11-18 17:21] VITALS: BP 152/73
[2018-11-18 20:00] VITALS: BP 148/67
[2018-11-19 01:32] VITALS: BP 139/52
[2018-11-19 04:00] VITALS: BP 124/57
[2018-11-19 07:00] LABS: BASOPHILS 0.2 % (0-2); EOSINOPHILS 4.2 % (0-7); HEMATOCRIT 30.5 % (36.0-48.0); HEMOGLOBIN 9.2 g/dL (12-16); IMMATURE GRANULOCYTES 0.5 % (0-5); LYMPHOCYTES 41.5 % (15-50); MCH 23.9 pg (26.0-34.0); MCHC 30.2 g/dL (31.0-37.0); MCV 79.2 fL (80.0-100.0); MEAN PLATELET VOLUME 9.5 fL (7.4-10.4); MONOCYTES 7.7 % (2-11); NEUTROPHILS 45.9 % (40-80); PLATELET COUNT 382 10x3/uL (130-400); RBC 3.85 10x6/uL (4.00-5.40); RDW 20.2 % (11.5-14.5)
[2018-11-19 07:02] LABS: CALC OSMOLALITY 280 mosm/kg (275-300); CALCIUM 8.4 mg/dL (8.5-10.1); CARBON DIOXIDE 26.9 mmol/L (21.0-32.0); CHLORIDE - SERUM 106 mmol/L (98-107); GLUCOSE 88 mg/dL (74-106); POTASSIUM - SERUM 3.7 mmol/L (3.5-5.1); SODIUM 142 mmol/L (136-145); UREA NITROGEN 10 mg/dL (7-18); WBC 4.3 10x3/uL (4.8-10.8); eGFR NON AFRICAN AMERICAN 87 mL/min (90-120)
[2018-11-19 07:06] LABS: CREATININE - SERUM 0.7 mg/dL (0.6-1.3)
--- NOTE | 2018-11-19 11:01 | MORECARE ---
CASE MANAGEMENT DISCHARGE SUMMARY PATIENT: MATA MCCONNELL UNIT: [id number] ADM DATE: 11/09/18 AGE: 73 : [birth year] SEX: F ROOM/BED: D.1205 AUTHOR: DALIA,DOC PHYSICIAN: REFERRING PHYSICIAN: ALFREDO BRIGGS MD DATE OF SERVICE: 11/19/18 Discharge Plan Patient Name: MATA MCCONNELL Facility: [facility]:[place] : 1945 Planned Disposition: Correction Facility Anticipated Discharge Date: Discharge Date: Expected LOS: Initial Reviewer: [email or web address] Initial Review Date: 11/09/2018 Generated: 11/19/18 12:00 pm Comments DCP- Discharge Planning Updated by [email or web address]: Yenny Long on 11/19/18 9:[address] Patient Name: MATA MCCONNELL Admission Status: ER Accout number: [id number] Admission Date: 11-09-2018 : 1945 Admission Diagnosis:PAIN IN LEFT ANKLE AND JOINTS OF LEFT FOOT Attending: ALFREDO BRIGGS Current LOS: 10 Anticipated DC Date: Planned Disposition: Correction Facility Primary Insurance: [employer] MCR ADVANT Discharge Planning Comments: CM SPOKE WITH LEN AT THE [facility] FROM TODAY TO BE FAXED TO HER. ALSO, WILL LET HER KNOW WHEN PATIENT IS STABLE FOR DISCHARGE TO THE [facility]. Card Dealer: Yenny Long DCP- Discharge Planning Updated by [id number]: Nargis Sanchez on 11/18/18 11:[address] LATE ENTRY 1045 TC TO LEN JUNG TO ADVISE THE NOELLE DETERMINATION RETURNED. CLIENT IS A NON-PASRR CLIENT. CM FAXED COPY OF NOELLE AND CLINICAL UPDATE TO LEN AT [phone]. DCP- Discharge Planning Updated by [id number]: Yenny Long on 11/17/18 3:[address] Patient Name: MATA MCCONNELL Admission Status: ER Accout number: [id number] Admission Date: 11-09-2018 : 1945 Admission Diagnosis:PAIN IN LEFT ANKLE AND JOINTS OF LEFT FOOT Attending: ALFREDO BRIGGS Current LOS: 8 Anticipated DC Date: Planned Disposition: Correction Facility Primary Insurance: HUMANA CHOICE PPO MCR [employer] Discharge Planning Comments: CM LEFT VM FOR YENNY AT [facility] AT [phone]. CM EXPRESSED CONCERN ABOUT PATIENTS LIVING SITUATION AND LEFT A CALL BACK NUMBER. CM WILL FOLLOW AND ASSIST NEEDED WITH DC PLANNING/NEEDS. Card Dealer: Yenny Long DCP- Discharge Planning Updated by [id number]: Yenny Long on 11/16/18 12:[address] Patient Name: MATA MCCONNELL Admission Status: ER Accout number: [id number] Admission Date: 11-09-2018 : 1945 Admission Diagnosis:PAIN IN LEFT ANKLE AND JOINTS OF LEFT FOOT Attending: ALFREDO BRIGGS Current LOS: 7 Anticipated DC Date: Planned Disposition: Correction Facility Primary Insurance: HUMANA CHOICE PPO MCR [employer] Discharge Planning Comments: CM SPOKE WITH PATIENT AND SHE STATES HER LIVING CONDITIONS ARE NOT GOOD. STATES THE HOUSE/APT IS INFESTED WITH RATS, SHE HAS NO TRANSPORTATION. CM TRIED CALLING [facility] AT BUT SOMETHING IS WRONG WITH THEIR CALL CENTER. CM WILL NEED TO FOLLOW UP WITH THIS BEFORE HER DISCHARGE OR PASS THE INFO ON TO THE INTERMEDIATE FACILITY. SHE ALSO STATES SHE NEEDS HELP WITH GETTING HOUSING ASSISTANCE, FOOD STAMPS, AND OTHER SERVICES. CM WILL GIVE HER INFORMATION ON HOW TO OBTAIN THESE SERVICES. Card Dealer: Yenny Long DCP- Discharge Planning Updated by [id number]: Rosa Chan on 11/15/18 3:[address] CM completed and faxed NOELLE. Awaiting determination. DCP- Discharge Planning Updated by [id number]: Rosa Chan on 11/15/18 10:[address] CM received call from Michelle Anderson with the [facility] requesting updated therapy notes. CM faxed records as requested. Michelle states they are still waiting for insurance auth. Michelle informed CM that a NOELLE would be required d/t Dx of Anxiety disorder. CM will complete and fax NOELLE forms today. DCP- Discharge Planning Updated by [id number]: Yenny Mercedes on 11/14/18 1:[address] Patient Name: MATA MCCONNELL Admission Status: ER Accout number: [id number] Admission Date: 11-09-2018 : 1945 Admission Diagnosis:PAIN IN LEFT ANKLE AND JOINTS OF LEFT FOOT Attending: ALFREDO BRIGGS Current LOS: 5 Anticipated DC Date: Planned Disposition: Inpatient Rehab Facility Primary Insurance: HUMANA CHOICE PPO MCR [employer] Discharge Planning Comments: CM SPOKE WITH INSURANCE COMPANY AND P2P DONE WITH DR. BRANNON TO SEE IF APPROVED FOR INPT REHAB. DR BRANNON STATES INS SAID THEY WILL APPROVE SNF. REFERALL SENT TO LEN AT THE [facility] FOR SNF. CM WILL FOLLOW AND ASSIST NEEDED WITH DC PLANNING/NEEDS. Card Dealer: Yenny Long DCP- Discharge Planning Updated by [id number]: Nargis Sanchez on 11/11/18 3:[address] CM MET WITH THE PATIENT AND HER SON, VIJAY MCCONNELL, AT THE BEDSIDE. CM ASK HER PERMISSION TO SPEAK WITH HER W/ THE SON PRESENT. SHE GAVE PERMISSION FOR HM TO STAY. HE ASSIST HIS MOTHER. PATIENT IS PLEASANT AND A/O X4. SHE LOOKS TO HER SON WHEN SHE ANSWERS QUESTIONS. 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 THE SON IS IN THE PROCESS OF LOOKING FOR ANOTHER HOME. SAFER ENVIRONMENT AND LESS STAIRS. HE PLANS TO MOVE HER AROUND November. SHE LIKELY WILL NEED REHAB. THEY HAD DISCUSSED ACUTE REHAB WITH THE PHYSICAL THERAPIST. PATIENT AND SON AGREE THAT IS THE PLAN AT PRESENT. PHARMACY- [facility] [address]. PCP- DR MATTEO CALABRESE DME- WALKER OT EVAL ORDER OBTAINED. CM TO FOLLOW TO ASSIST W/ DC PLANNING. DCPIA - Discharge Planning Initial Assessment Updated by [id number]: Nargis Sanchez on 11/11/18 4:09 pm * Is the patient Alert and Oriented? Yes * How many steps to enter\\exit or inside your home? 12- 15 * PCP DR MATTEO CALABRESE * Pharmacy [facility] [address] * Preadmission Environment Home Alone * ADLs Independent * Equipment Walker * Other Equipment DENIES ANY ADDITIONAL DME * List name and contact numbers for known caregivers / representatives who currently or will assist patient after discharge: VIJAY MCCONNELL- SON- [phone] * Verbal permission to speak to the caregivers and representatives has been obtained from the patient. Yes * Community resources currently utilized None * Please name any agencies selected above. NO SERVICES AT THIS TIME. HAS HAD [email or web address] IN THE PAST * Additional services required to return to the preadmission environment? Yes * Can the patient safely return to the preadmission environment? No * Has this patient been hospitalized within the prior 30 days at any hospital? No Coverage Notice Reviewer: [email or web address] Long Notice Issued Date-Time: 11/13/2018 8:49 Notice Type: IM Discharge Notice Notice Delivered To: Patient Relationship to Patient: Self Car Record Clerk Name: Delivery Method: HAND - Hand Delivered Rebeka Days: Prior Verbal Notification: Recipient Understood Notice: Yes Recipient Signature: Yes Med Rec Note Co-signed by Attending: Coverage Notice Comment: Reviewer: [id number] Long Notice Issued Date-Time: 11/14/2018 14:27 Notice Type: Patient Choice Letter Notice Delivered To: Patient Relationship to Patient: Self Car Record Clerk Name: Delivery Method: HAND - Hand Delivered Rebeka Days: Prior Verbal Notification: Recipient Understood Notice: Yes Recipient Signature: Yes Med Rec Note Co-signed by Attending: Coverage Notice Comment: PENELOPE OSBORN. Last DP export: 11/18/18 11:19 a Patient Name: MATA MCCONNELL Page 22771 at 1101 All edits/amendments must be made on the electronic document DICTATION DATE: 11/19/18 1100 PEDIATRIC NURSE: DONAL 11/19/18 1100 RPT#: [id number] DC DATE: STATUS: ADM IN [facility] [address] [place] [address] END OF REPORT
[2018-11-20] VITALS: BP 137/58
[2018-11-20 04:00] VITALS: BP 127/52
[2018-11-20 07:20] LABS: BASOPHILS 0.4 % (0-2); EOSINOPHILS 3.5 % (0-7); HEMATOCRIT 31.9 % (36.0-48.0); HEMOGLOBIN 9.8 g/dL (12-16); IMMATURE GRANULOCYTES 0.2 % (0-5); LYMPHOCYTES 35.6 % (15-50); MCH 24.3 pg (26.0-34.0); MCHC 30.7 g/dL (31.0-37.0); MCV 79.2 fL (80.0-100.0); MEAN PLATELET VOLUME 9.4 fL (7.4-10.4); MONOCYTES 7.7 % (2-11); NEUTROPHILS 52.6 % (40-80); PLATELET COUNT 370 10x3/uL (130-400); RBC 4.03 10x6/uL (4.00-5.40); RDW 20.5 % (11.5-14.5); WBC 4.8 10x3/uL (4.8-10.8)
[2018-11-20 07:44] LABS: CALC OSMOLALITY 278 mosm/kg (275-300); CALCIUM 8.6 mg/dL (8.5-10.1); CHLORIDE - SERUM 105 mmol/L (98-107); CREATININE - SERUM 0.6 mg/dL (0.6-1.3); GLUCOSE 91 mg/dL (74-106); POTASSIUM - SERUM 4.1 mmol/L (3.5-5.1); SODIUM 140 mmol/L (136-145); eGFR NON AFRICAN AMERICAN > 90 mL/min (90-120)
[2018-11-20 07:45] LABS: UREA NITROGEN 13 mg/dL (7-18)
--- NOTE | 2018-11-20 10:02 | MORECARE ---
CASE MANAGEMENT DISCHARGE SUMMARY PATIENT: MATA MCCONNELL UNIT: [id number] ADM DATE: 11/09/18 AGE: 73 : [birth year] SEX: F ROOM/BED: D.1205 AUTHOR: CHARLES GÓMEZ PHYSICIAN: REFERRING PHYSICIAN: ALFREDO BRIGGS MD DATE OF SERVICE: 11/20/18 Discharge Plan Patient Name: MATA MCCONNELL Facility: [facility]:[place] : 1945 Planned Disposition: Assisted Facility Anticipated Discharge Date: Discharge Date: Expected LOS: Initial Reviewer: [id number] Initial Review Date: 11/09/2018 Generated: 11/20/18 11:02 am Comments DCP- Discharge Planning Updated by [id number]: Yenny Long on 11/20/18 8:[address] Patient Name: MATA MCCONNELL Admission Status: ER Accout number: [id number] Admission Date: 11-09-2018 : 1945 Admission Diagnosis:PAIN IN LEFT ANKLE AND JOINTS OF LEFT FOOT Attending: ALFREDO BRIGGS Current LOS: 11 Anticipated DC Date: Planned Disposition: Assisted Facility Primary Insurance: HUMANA CHOICE PPO [facility] ADVANT Discharge Planning Comments: CM FAXED DC DOCS TO [facility] AND SPOKE WITH LEN. SHE WILL CONTACT ME SOON SHE RECEIVES AUTH. ONCE AUTH RECEIVED PATIENT CAN BE TRANSPORTED TO [facility]. Tow Boat Captain: Yenny Long DCP- Discharge Planning Updated by [id number]: Yenny Long on 11/19/18 9:[address] Patient Name: MATA MCCONNELL Admission Status: ER Accout number: [id number] Admission Date: 11-09-2018 : 1945 Admission Diagnosis:PAIN IN LEFT ANKLE AND JOINTS OF LEFT FOOT Attending: ALFREDO BRIGGS Current LOS: 10 Anticipated DC Date: Planned Disposition: Assisted Facility Primary Insurance: HUMANA CHOICE PPO [facility] ADVANT Discharge Planning Comments: CM SPOKE WITH LEN AT [facility], CLINICALS FROM TODAY TO BE FAXED TO HER. ALSO, WILL LET HER KNOW WHEN PATIENT IS STABLE FOR DISCHARGE TO [facility]. Tow Boat Captain: Yenny Long DCP- Discharge Planning Updated by [id number]: Nargis Sanchez on 11/18/18 11:[address] LATE ENTRY 1045 TC TO LEN JUNG TO ADVISE THE NOELLE DETERMINATION RETURNED. CLIENT IS A NON-PASRR CLIENT. CM FAXED COPY OF NOELLE AND CLINICAL UPDATE TO LEN AT [phone]. DCP- Discharge Planning Updated by [id number]: Yenny Mercedes on 11/17/18 3:[address] Patient Name: MATA MCCONNELL Admission Status: ER Accout number: [id number] Admission Date: 11-09-2018 : 1945 Admission Diagnosis:PAIN IN LEFT ANKLE AND JOINTS OF LEFT FOOT Attending: ALFREDO BRIGGS Current LOS: 8 Anticipated DC Date: Planned Disposition: Assisted Facility Primary Insurance: HUMANA CHOICE PPO [facility] ADVANT Discharge Planning Comments: CM LEFT VM FOR YENNY AT [facility]PS AT [phone]. CM EXPRESSED CONCERN ABOUT PATIENTS LIVING SITUATION AND LEFT A CALL BACK NUMBER. CM WILL FOLLOW AND ASSIST NEEDED WITH DC PLANNING/NEEDS. Tow Boat Captain: Yenny Long DCP- Discharge Planning Updated by [id number]: Yenny Long on 11/16/18 12:[address] Patient Name: MATA MCCONNELL Admission Status: ER Accout number: [id number] Admission Date: 11-09-2018 : 1945 Admission Diagnosis:PAIN IN LEFT ANKLE AND JOINTS OF LEFT FOOT Attending: ALFREDO BRIGGS Current LOS: 7 Anticipated DC Date: Planned Disposition: Assisted Facility Primary Insurance: [employer]NA CHOICE PPO [facility] ADVANT Discharge Planning Comments: CM SPOKE WITH PATIENT AND SHE STATES HER LIVING CONDITIONS ARE NOT GOOD. STATES THE HOUSE/APT IS INFESTED WITH RATS, SHE HAS NO TRANSPORTATION. CM TRIED CALLING APS AT BUT SOMETHING IS WRONG WITH THEIR CALL CENTER. CM WILL NEED TO FOLLOW UP WITH THIS BEFORE HER DISCHARGE OR PASS THE INFO ON TO THE [facility]. SHE ALSO STATES SHE NEEDS HELP WITH GETTING HOUSING ASSISTANCE, FOOD STAMPS, AND OTHER SERVICES. CM WILL GIVE HER INFORMATION ON HOW TO OBTAIN THESE SERVICES. Tow Boat Captain: Yenny Long DCP- Discharge Planning Updated by [id number]: Rosa Chan on 11/15/18 3:[address] CM completed and faxed NOELLE. Awaiting determination. DCP- Discharge Planning Updated by [id number]: Rosa Dustin on 11/15/18 10:[address] CM received call from Michelle Anderson with the [facility] requesting updated therapy notes. CM faxed records as requested. Michelle states they are still waiting for insurance auth. Michelle informed CM that a NOELLE would be required d/t Dx of Anxiety disorder. CM will complete and fax NOELLE forms today. DCP- Discharge Planning Updated by [id number]: Yenny Long on 11/14/18 1:[address] Patient Name: MATA MCCONNELL Admission Status: ER Accout number: [id number] Admission Date: 11-09-2018 : 1945 Admission Diagnosis:PAIN IN LEFT ANKLE AND JOINTS OF LEFT FOOT Attending: ALFREDO BRIGGS Current LOS: 5 Anticipated DC Date: Planned Disposition: Inpatient Rehab Facility Primary Insurance: [employer] CHOICE PPO [facility] ADVANT Discharge Planning Comments: CM SPOKE WITH INSURANCE COMPANY AND P2P DONE WITH DR. BRANNON TO SEE IF APPROVED FOR INPT REHAB. DR BRANNON STATES INS SAID THEY WILL APPROVE SNF. REFERALL SENT TO [place] AT [facility] FOR SNF. CM WILL FOLLOW AND ASSIST NEEDED WITH DC PLANNING/NEEDS. Tow Boat Captain: Yenny Long DCP- Discharge Planning Updated by [id number]: Nargis Sanchez on 11/11/18 3:[address] CM MET WITH THE PATIENT AND HER SON, VIJAY MCCONNELL, AT THE BEDSIDE. CM ASK HER PERMISSION TO SPEAK WITH HER W/ THE SON PRESENT. SHE GAVE PERMISSION FOR TO STAY. HE ASSIST HIS MOTHER. PATIENT IS PLEASANT AND A/O X4. SHE LOOKS TO HER SON WHEN SHE ANSWERS QUESTIONS. 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 THE SON IS IN THE PROCESS OF LOOKING FOR ANOTHER HOME. SAFER ENVIRONMENT AND LESS STAIRS. HE PLANS TO MOVE HER AROUND November. SHE LIKELY WILL NEED REHAB. THEY HAD DISCUSSED ACUTE REHAB WITH THE PHYSICAL THERAPIST. PATIENT AND SON AGREE THAT IS THE PLAN AT PRESENT. PHARMACY- [facility] ON [address]. PCP- DR MATTEO CALABRESE DME- WALKER OT EVAL ORDER OBTAINED. CM TO FOLLOW TO ASSIST W/ DC PLANNING. DCPIA - Discharge Planning Initial Assessment Updated by [id number]: Nargis Sanchez on 11/11/18 4:09 pm * Is the patient Alert and Oriented? Yes * How many steps to enter\\exit or inside your home? 12- 15 * PCP DR MATTEO CALABRESE * Pharmacy [facility] [address] [facility] [address] * Preadmission Environment Home Alone * ADLs Independent * Equipment Walker * Other Equipment DENIES ANY ADDITIONAL DME * List name and contact numbers for known caregivers / representatives who currently or will assist patient after discharge: VIJAY MCCONNELL- [facility]- [phone] * Verbal permission to speak to the caregivers and representatives has been obtained from the patient. Yes * Community resources currently utilized None * Please name any agencies selected above. NO SERVICES AT THIS TIME. HAS HAD [facility] IN THE PAST * Additional services required to return to the preadmission environment? Yes * Can the patient safely return to the preadmission environment? No * Has this patient been hospitalized within the prior 30 days at any hospital? No Coverage Notice Reviewer: [id number] Alexandria Long Notice Issued Date-Time: 11/13/2018 8:49 Notice Type: IM Discharge Notice Notice Delivered To: Patient Relationship to Patient: Self Family Law Mediator Name: Delivery Method: HAND - Hand Delivered Rebeka Days: Prior Verbal Notification: Recipient Understood Notice: Yes Recipient Signature: Yes Med Rec Note Co-signed by Attending: Coverage Notice Comment: Reviewer: [email or web address] Long Notice Issued Date-Time: 11/14/2018 14:27 Notice Type: Patient Choice Letter Notice Delivered To: Patient Relationship to Patient: Self Family Law Mediator Name: Delivery Method: HAND - Hand Delivered Rebeka Days: Prior Verbal Notification: Recipient Understood Notice: Yes Recipient Signature: Yes Med Rec Note Co-signed by Attending: Coverage Notice Comment: PENELOPE OSBORN. Last DP export: 11/19/18 10:00 a Patient Name: MATA MCCONNELL Page [id number] at 1002 All edits/amendments must be made on the electronic document DICTATION DATE: 11/20/18 1002 EXTENSION WORKER: DONAL 11/20/18 1002 RPT#: [id number] DC DATE: STATUS: ADM IN [facility] [address] [place] [address] END OF REPORT
[2018-11-20 11:05] VITALS: BP 136/62
[2018-11-20 11:33] LABS: APPEARANCE CLEAR (CLEAR); BILIRUBIN NEGATIVE (NEGATIVE); COLOR YELLOW (YELLOW); GLUCOSE NEGATIVE (NEGATIVE); KETONE NEGATIVE (NEGATIVE); NITRITE NEGATIVE (NEGATIVE); PROTEIN NEGATIVE (NEGATIVE)
[2018-11-20 11:49] LABS: BACTERIA FEW /hpf (NONE SEEN); EPITHELIAL CELLS OCC /hpf (0-5); MUCUS <1+ /lpf (NONE SEEN); TALC POWDER CRYSTALS 0-5 /hpf (NONE SEEN)
--- NOTE | 2018-11-20 14:09 | MORECARE ---
CASE MANAGEMENT DISCHARGE SUMMARY PATIENT: MATA MCCONNELL UNIT: [id number] ADM DATE: 11/09/18 AGE: 73 : [birth year] SEX: F ROOM/BED: D.1205 AUTHOR: CHARLES GÓMEZ PHYSICIAN: REFERRING PHYSICIAN: ALFREDO BRIGGS MD DATE OF SERVICE: 11/20/18 Discharge Plan Patient Name: MATA MCCONNELL Facility: [facility]:[place] : 1945 Planned Disposition: Snf Facility Anticipated Discharge Date: Discharge Date: Expected LOS: Initial Reviewer: [id number] Initial Review Date: 11/09/2018 Generated: 11/20/18 3:09 pm Comments DCP- Discharge Planning Updated by [id number]: Yenny Long on 11/20/18 1:[address] Patient Name: MATA MCCONNELL Admission Status: ER Accout number: [id number] Admission Date: 11-09-2018 : 1945 Admission Diagnosis:PAIN IN LEFT ANKLE AND JOINTS OF LEFT FOOT Attending: ALFREDO BRIGGS Current LOS: 11 Anticipated DC Date: Planned Disposition: Snf Facility Primary Insurance: HUMANA CHOICE PPO [facility] ADVANT Discharge Planning Comments: LEN FROM THE [facility] CONTACTED ME AND THE PATIENT HAS BEEN APPROVED AT THEIR FACILITY. SHE WILL CONTACT ME WITH A TIME THEY WILL PLASTER WHITTLER. ANTICIPATING PLASTER WHITTLER TODAY. Industrial Roofer Helper: Yenny Long DCP- Discharge Planning Updated by [email or web address]: Yenny Long on 11/20/18 8:[address] Patient Name: MATA MCCONNELL Admission Status: ER Accout number: [id number] Admission Date: 11-09-2018 : 1945 Admission Diagnosis:PAIN IN LEFT ANKLE AND JOINTS OF LEFT FOOT Attending: ALFREDO BRIGGS Current LOS: 11 Anticipated DC Date: Planned Disposition: Snf Facility Primary Insurance: HUMANA CHOICE PPO [facility] ADVANT Discharge Planning Comments: FAXED DC DOCS TO THE [facility] AND SPOKE WITH LEN. SHE WILL CONTACT ME SOON SHE RECEIVES AUTH. ONCE AUTH RECEIVED PATIENT CAN BE TRANSPORTED TO THE [facility]. Industrial Roofer Helper: Yenny Long DCP- Discharge Planning Updated by [id number]: Yenny Long on 11/19/18 9:[address] Patient Name: MATA MCCONNELL Admission Status: ER Accout number: [id number] Admission Date: 11-09-2018 : 1945 Admission Diagnosis:PAIN IN LEFT ANKLE AND JOINTS OF LEFT FOOT Attending: ALFREDO BRIGGS Current LOS: 10 Anticipated DC Date: Planned Disposition: Snf Facility Primary Insurance: HU[employer]NA CHOICE PPO [facility] ADVANT Discharge Planning Comments: CM SPOKE WITH LEN AT THE [facility], CLINICALS FROM TODAY TO BE FAXED TO HER. ALSO, WILL LET HER KNOW WHEN PATIENT IS STABLE FOR DISCHARGE TO THE [facility]. Industrial Roofer Helper: Yenny Long DCP- Discharge Planning Updated by [id number]: Nargis Sanchez on 11/18/18 11:[address] LATE ENTRY 1045 TC TO LEN JUNG TO ADVISE THE NOELLE DETERMINATION RETURNED. CLIENT IS A NON-PASRR CLIENT. CM FAXED COPY OF NOELLE AND CLINICAL UPDATE TO LEN AT [phone]. DCP- Discharge Planning Updated by [id number]: Yenny Mercedes on 11/17/18 3:[address] Patient Name: MATA MCCONNELL Admission Status: ER Accout number: [id number] Admission Date: 11-09-2018 : 1945 Admission Diagnosis:PAIN IN LEFT ANKLE AND JOINTS OF LEFT FOOT Attending: ALFREDO BRIGGS Current LOS: 8 Anticipated DC Date: Planned Disposition: Snf Facility Primary Insurance: HU[employer]NA CHOICE PPO [facility] ADVANT Discharge Planning Comments: CM LEFT FOR YENNY AT [facility] AT [phone]. CM EXPRESSED CONCERN ABOUT PATIENTS LIVING SITUATION AND LEFT A CALL BACK NUMBER. CM WILL FOLLOW AND ASSIST NEEDED WITH DC PLANNING/NEEDS. Industrial Roofer Helper: Yenny Long DCP- Discharge Planning Updated by [id number]: Yenny Long on 11/16/18 12:[address] Patient Name: MATA MCCONNELL Admission Status: ER Accout number: [id number] Admission Date: 11-09-2018 : 1945 Admission Diagnosis:PAIN IN LEFT ANKLE AND JOINTS OF LEFT FOOT Attending: ALFREDO BRIGGS Current LOS: 7 Anticipated DC Date: Planned Disposition: Snf Facility Primary Insurance: HU[employer]NA CHOICE PPO [facility] ADVANT Discharge Planning Comments: CM SPOKE WITH PATIENT AND SHE STATES HER LIVING CONDITIONS ARE NOT GOOD. STATES THE HOUSE/APT IS INFESTED WITH RATS, SHE HAS NO TRANSPORTATION. CM TRIED CALLING APS AT BUT SOMETHING IS WRONG WITH THEIR CALL CENTER. CM WILL NEED TO FOLLOW UP WITH THIS BEFORE HER DISCHARGE OR PASS THE INFO ON TO THE [facility]. SHE ALSO STATES SHE NEEDS HELP WITH GETTING HOUSING ASSISTANCE, FOOD STAMPS, AND OTHER SERVICES. CM WILL GIVE HER INFORMATION ON HOW TO OBTAIN THESE SERVICES. Industrial Roofer Helper: Yenny Long DCP- Discharge Planning Updated by [id number]: Rosa Chan on 11/15/18 3:[address] CM completed and faxed NOELLE. Awaiting determination. DCP- Discharge Planning Updated by [id number]: Rosa Chan on 11/15/18 10:[address] CM received call from Michelle Anderson with the [facility] requesting updated therapy notes. CM faxed records as requested. Michelle states they are still waiting for insurance auth. Michelle informed CM that a NOELLE would be required d/t Dx of Anxiety disorder. CM will complete and fax NOELLE forms today. DCP- Discharge Planning Updated by [id number]: Yenny Long on 11/14/18 1:[address] Patient Name: MATA MCCONNELL Admission Status: ER Accout number: [id number] Admission Date: 11-09-2018 : 1945 Admission Diagnosis:PAIN IN LEFT ANKLE AND JOINTS OF LEFT FOOT Attending: ALFREDO BRIGGS Current LOS: 5 Anticipated DC Date: Planned Disposition: Inpatient Rehab Facility Primary Insurance: [employer] CHOICE PPO [facility] ADVANT Discharge Planning Comments: CM SPOKE WITH INSURANCE COMPANY AND P2P DONE WITH DR. BRANNON TO SEE IF APPROVED FOR INPT REHAB. DR BRANNON STATES INS SAID THEY WILL APPROVE SNF. REFERALL SENT TO [place] AT THE [facility] FOR SNF. CM WILL FOLLOW AND ASSIST NEEDED WITH DC PLANNING/NEEDS. Industrial Roofer Helper: Yenny Long DCP- Discharge Planning Updated by [id number]: Nargis Sanchez on 11/11/18 3:[address] CM MET WITH THE PATIENT AND HER SON, VIJAY MCCONNELL, AT THE BEDSIDE. CM ASK HER PERMISSION TO SPEAK WITH HER W/ THE SON PRESENT. SHE GAVE PERMISSION FOR TO STAY. HE ASSIST HIS MOTHER. PATIENT IS PLEASANT AND A/O X4. SHE LOOKS TO HER SON WHEN SHE ANSWERS QUESTIONS. 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 THE SON IS IN THE PROCESS OF LOOKING FOR ANOTHER HOME. SAFER ENVIRONMENT AND LESS STAIRS. HE PLANS TO MOVE HER AROUND November. SHE LIKELY WILL NEED REHAB. THEY HAD DISCUSSED ACUTE REHAB WITH THE PHYSICAL THERAPIST. PATIENT AND SON AGREE THAT IS THE PLAN AT PRESENT. PHARMACY- [facility]. PCP- DR MATTEO CALABRESE DME- WALKER OT EVAL ORDER OBTAINED. CM TO FOLLOW TO ASSIST W/ DC PLANNING. DCPIA - Discharge Planning Initial Assessment Updated by [id number]: Nargis Sanchez on 11/11/18 4:09 pm * Is the patient Alert and Oriented? Yes * How many steps to enter\\exit or inside your home? 12- 15 * PCP DR MATTEO CALABRESE * Pharmacy [facility] [address] [facility] [address] * Preadmission Environment Home Alone * ADLs Independent * Equipment Walker * Other Equipment DENIES ANY ADDITIONAL DME * List name and contact numbers for known caregivers / representatives who currently or will assist patient after discharge: VIJAY MCCONNELL- JAMES- [phone] * Verbal permission to speak to the caregivers and representatives has been obtained from the patient. Yes * Community resources currently utilized None * Please name any agencies selected above. NO SERVICES AT THIS TIME. HAS HAD [facility] IN THE PAST * Additional services required to return to the preadmission environment? Yes * Can the patient safely return to the preadmission environment? No * Has this patient been hospitalized within the prior 30 days at any hospital? No Coverage Notice Reviewer: [id number] Alexandria Long Notice Issued Date-Time: 11/13/2018 8:49 Notice Type: IM Discharge Notice Notice Delivered To: Patient Relationship to Patient: Self Deputy Insurance Commissioner Name: Delivery Method: HAND - Hand Delivered Rebeka Days: Prior Verbal Notification: Recipient Understood Notice: Yes Recipient Signature: Yes Med Rec Note Co-signed by Attending: Coverage Notice Comment: Reviewer: [id number] [place] Long Notice Issued Date-Time: 11/14/2018 14:27 Notice Type: Patient Choice Letter Notice Delivered To: Patient Relationship to Patient: Self Deputy Insurance Commissioner Name: Delivery Method: HAND - Hand Delivered Rebeka Days: Prior Verbal Notification: Recipient Understood Notice: Yes Recipient Signature: Yes Med Rec Note Co-signed by Attending: Coverage Notice Comment: PENELOPE IRENA. Reviewer: [id number] [place] Long Notice Issued Date-Time: 11/20/2018 10:44 Notice Type: IM Discharge Notice Notice Delivered To: Patient Relationship to Patient: Self Deputy Insurance Commissioner Name: Delivery Method: HAND - Hand Delivered Rebeka Days: Prior Verbal Notification: Recipient Understood Notice: Yes Recipient Signature: Med Rec Note Co-signed by Attending: Coverage Notice Comment: PATIENT DIDN'T WANT TO SIGN. IM EXPLAINED AND COPY LEFT WITH HER. THIS IS HER 3RD IM THIS VISIT. Last DP export: 11/20/18 9:02 a Patient Name: MATA MCCONNELL Page [phone] at 1409 All edits/amendments must be made on the electronic document DICTATION DATE: 11/20/181408 CUSTOMER SUPPORT AGENT: DONAL 11/20/18 1409 RPT#: [id number] DC DATE: STATUS: ADM IN [facility] [address] [place] [address] END OF REPORT
[2018-11-20 14:11] VITALS: BP 148/62
[2018-11-20] MEDS ORDERED: MS CONTIN30 MG PO (14:15)
--- NOTE | 2018-11-20 16:36 | MORECARE ---
CASE MANAGEMENT DISCHARGE SUMMARY PATIENT: MATA MCCONNELL UNIT: [id number] ADM DATE: 11/09/18 AGE: 73 : [birth year] SEX: F ROOM/BED: D.1205 AUTHOR: CHARLES GÓMEZ PHYSICIAN: REFERRING PHYSICIAN: ALFREDO BRIGGS MD DATE OF SERVICE: 11/20/18 Discharge Plan Patient Name: MATA MCCONNELL Facility: [facility]:[place] : 1945 Planned Disposition: Alf Facility Anticipated Discharge Date: Discharge Date: 11/20/2018 Expected LOS: Initial Reviewer: [email or web address] Initial Review Date: 11/09/2018 Generated: 11/20/18 5:36 pm Comments DCP- Discharge Planning Updated by [id number]: Yenny Long on 11/20/18 1:[address] Patient Name: MATA MCCONNELL Admission Status: ER Accout number: [id number] Admission Date: 11-09-2018 : 1945 Admission Diagnosis:PAIN IN LEFT ANKLE AND JOINTS OF LEFT FOOT Attending: ALFREDO BRIGGS Current LOS: 11 Anticipated DC Date: Planned Disposition: Alf Facility Primary Insurance: HUMANA CHOICE PPO [facility] ADVANT Discharge Planning Comments: LEN FROM THE [facility] CONTACTED ME AND THE PATIENT HAS BEEN APPROVED AT THEIR FACILITY. SHE WILL CONTACT ME WITH A TIME THEY WILL FINGER COBBLER. ANTICIPATING FINGER COBBLER TODAY. Skidway Man: Yenny Long DCP- Discharge Planning Updated by [id number]: Yenny Long on 11/20/18 8:[address] Patient Name: MATA MCCONNELL Admission Status: ER Accout number: [id number] Admission Date: 11-09-2018 : 1945 Admission Diagnosis:PAIN IN LEFT ANKLE AND JOINTS OF LEFT FOOT Attending: ALFREDO BRIGGS Current LOS: 11 Anticipated DC Date: Planned Disposition: Alf Facility Primary Insurance: HUMANA CHOICE PPO M[facility] ADVANT Discharge Planning Comments: FAXED DC DOCS TO THE [facility] AND SPOKE WITH LEN. SHE WILL CONTACT ME SOON SHE RECEIVES AUTH. ONCE AUTH RECEIVED PATIENT CAN BE TRANSPORTED TO THE [facility]. Skidway Man: Yenny Long DCP- Discharge Planning Updated by [email or web address]: Yenny Long on 11/19/18 9:[address] Patient Name: MATA MCCONNELL Admission Status: ER Accout number: [id number] Admission Date: 11-09-2018 : 1945 Admission Diagnosis:PAIN IN LEFT ANKLE AND JOINTS OF LEFT FOOT Attending: ALFREDO BRIGGS Current LOS: 10 Anticipated DC Date: Planned Disposition: Alf Facility Primary Insurance: HUMANA CHOICE PPO MCR ADVANT Discharge Planning Comments: CM SPOKE WITH LEN AT [facility] FROM TODAY TO BE FAXED TO HER. ALSO, WILL LET HER KNOW WHEN PATIENT IS STABLE FOR DISCHARGE TO THE [facility]. Skidway Man: Yenny Long DCP- Discharge Planning Updated by [id number]: Nargis Sanchez on 11/18/18 11:[address] LATE ENTRY 1045 TC TO LEN JUNG TO ADVISE THE NOELLE DETERMINATION RETURNED. CLIENT IS A NON-PASRR CLIENT. CM FAXED COPY OF NOELLE AND CLINICAL UPDATE TO LEN AT [phone]. DCP- Discharge Planning Updated by [id number]: Yenny Long on 11/17/18 3:[address] Patient Name: MATA MCCONNELL Admission Status: ER Accout number: [id number] Admission Date: 11-09-2018 : 1945 Admission Diagnosis:PAIN IN LEFT ANKLE AND JOINTS OF LEFT FOOT Attending: ALFREDO BRIGGS Current LOS: 8 Anticipated DC Date: Planned Disposition: Alf Facility Primary Insurance: HUMANA CHOICE PPO MCR ADVANT Discharge Planning Comments: CM LEFT FOR YENNY AT [facility] AT [phone]. CM EXPRESSED CONCERN ABOUT PATIENTS LIVING SITUATION AND LEFT A CALL BACK NUMBER. CM WILL FOLLOW AND ASSIST NEEDED WITH DC PLANNING/NEEDS. Skidway Man: Yenny Long DCP- Discharge Planning Updated by [id number]: Yenny Long on 11/16/18 12:[address] Patient Name: MATA MCCONNELL Admission Status: ER Accout number: [id number] Admission Date: 11-09-2018 : 1945 Admission Diagnosis:PAIN IN LEFT ANKLE AND JOINTS OF LEFT FOOT Attending: ALFREDO BRIGGS Current LOS: 7 Anticipated DC Date: Planned Disposition: Alf Facility Primary Insurance: HUMANA CHOICE PPO M[employer] ADVANT Discharge Planning Comments: CM SPOKE WITH PATIENT AND SHE STATES HER LIVING CONDITIONS ARE NOT GOOD. STATES THE HOUSE/APT IS INFESTED WITH RATS, SHE HAS NO TRANSPORTATION. CM TRIED CALLING APS AT BUT SOMETHING IS WRONG WITH THEIR CALL CENTER. CM WILL NEED TO FOLLOW UP WITH THIS BEFORE HER DISCHARGE OR PASS THE INFO ON TO THE [facility] FACILITY. SHE ALSO STATES SHE NEEDS HELP WITH GETTING HOUSING ASSISTANCE, FOOD STAMPS, AND OTHER SERVICES. CM WILL GIVE HER INFORMATION ON HOW TO OBTAIN THESE SERVICES. Skidway Man: Yenny Long DCP- Discharge Planning Updated by [id number]: Rosa Chan on 11/15/18 3:[address] CM completed and faxed NOELLE. Awaiting determination. DCP- Discharge Planning Updated by [email or web address]: Rosa Chan on 11/15/18 10:[address] CM received call from Michelle Anderson with the [facility] requesting updated therapy notes. CM faxed records as requested. Michelle states they are still waiting for insurance auth. Michelle informed CM that a NOELLE would be required d/t Dx of Anxiety disorder. CM will complete and fax NOELLE forms today. DCP- Discharge Planning Updated by [id number]: Yenny Long on 11/14/18 1:[address] Patient Name: MATA MCCONNELL Admission Status: ER Accout number: [id number] Admission Date: 11-09-2018 : 1945 Admission Diagnosis:PAIN IN LEFT ANKLE AND JOINTS OF LEFT FOOT Attending: ALFREDO BRIGGS Current LOS: 5 Anticipated DC Date: Planned Disposition: Inpatient Rehab Facility Primary Insurance: HUMANA CHOICE PPO M[employer] ADVANT Discharge Planning Comments: CM SPOKE WITH INSURANCE COMPANY AND P2P DONE WITH DR. BRANNON TO SEE IF APPROVED FOR INPT REHAB. DR BRANNON STATES INS SAID THEY WILL APPROVE SNF. REFERALL SENT TO [place] AT THE [facility] FOR SNF. CM WILL FOLLOW AND ASSIST NEEDED WITH DC PLANNING/NEEDS. Skidway Man: Yenny Long DCP- Discharge Planning Updated by [email or web address]: Nargis Sanchez on 11/11/18 3:[address] CM MET WITH THE PATIENT AND HER SON, VIJAY MCCONNELL, AT THE BEDSIDE. CM ASK HER PERMISSION TO SPEAK WITH HER W/ THE SON PRESENT. SHE GAVE PERMISSION FOR TO STAY. HE ASSIST HIS MOTHER. PATIENT IS PLEASANT AND A/O X4. SHE LOOKS TO HER SON WHEN SHE ANSWERS QUESTIONS. 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 THE SON IS IN THE PROCESS OF LOOKING FOR ANOTHER HOME. SAFER ENVIRONMENT AND LESS STAIRS. HE PLANS TO MOVE HER AROUND November. SHE LIKELY WILL NEED REHAB. THEY HAD DISCUSSED ACUTE REHAB WITH THE PHYSICAL THERAPIST. PATIENT AND SON AGREE THAT IS THE PLAN AT PRESENT. PHARMACY- [facility] ON [address]. PCP- DR MATTEO CALABRESE DME- WALKER OT EVAL ORDER OBTAINED. CM TO FOLLOW TO ASSIST W/ DC PLANNING. DCPIA - Discharge Planning Initial Assessment Updated by [email or web address]: Nargis Sanchez on 11/11/18 4:09 pm * Is the patient Alert and Oriented? Yes * How many steps to enter\\exit or inside your home? 12- 15 * PCP DR MATTEO CALABRESE * Pharmacy [facility] [address] * Preadmission Environment Home Alone * ADLs Independent * Equipment Walker * Other Equipment DENIES ANY ADDITIONAL DME * List name and contact numbers for known caregivers / representatives who currently or will assist patient after discharge: VIJAY MCCONNELL- JAMES- [phone] * Verbal permission to speak to the caregivers and representatives has been obtained from the patient. Yes * Community resources currently utilized None * Please name any agencies selected above. NO SERVICES AT THIS TIME. HAS HAD [facility] IN THE PAST * Additional services required to return to the preadmission environment? Yes * Can the patient safely return to the preadmission environment? No * Has this patient been hospitalized within the prior 30 days at any hospital? No Coverage Notice Reviewer: [id number] Alexandria Long Notice Issued Date-Time: 11/13/2018 8:49 Notice Type: IM Discharge Notice Notice Delivered To: Patient Relationship to Patient: Self Operations Label Clerk Name: Delivery Method: HAND - Hand Delivered Rebeka Days: Prior Verbal Notification: Recipient Understood Notice: Yes Recipient Signature: Yes Med Rec Note Co-signed by Attending: Coverage Notice Comment: Reviewer: [id number] Alexandria Long Notice Issued Date-Time: 11/14/2018 14:27 Notice Type: Patient Choice Letter Notice Delivered To: Patient Relationship to Patient: Self Operations Label Clerk Name: Delivery Method: HAND - Hand Delivered Rebeka Days: Prior Verbal Notification: Recipient Understood Notice: Yes Recipient Signature: Yes Med Rec Note Co-signed by Attending: Coverage Notice Comment: PENELOPE IRENA. Reviewer: [id number] Alexandria Long Notice Issued Date-Time: 11/20/2018 10:44 Notice Type: IM Discharge Notice Notice Delivered To: Patient Relationship to Patient: Self Operations Label Clerk Name: Delivery Method: HAND - Hand Delivered Rebeka Days: Prior Verbal Notification: Recipient Understood Notice: Yes Recipient Signature: Med Rec Note Co-signed by Attending: Coverage Notice Comment: PATIENT DIDN'T WANT TO SIGN. IM EXPLAINED AND COPY LEFT WITH HER. THIS IS HER 3RD IM THIS VISIT. Last DP export: 11/20/18 1:09 p Patient Name: MATA MCCONNELL Page [phone] at 1636 All edits/amendments must be made on the electronic document DICTATION DATE: 11/20/18 1636 SHOE COVERER: DONAL 11/20/18 1636 RPT#: [id number] DC DATE:11/20/18 STATUS: DIS IN [facility] [address] [place] [address] END OF REPORT
== END 2018-11-20 15:49 | DRG 563 ==
LOC: D.ER 13:17 → D.EDHOLD 16:54 → D.M3 16:54
PROVIDERS: Family Medicine; ADMIT Internal Medicine Nephrology
DX: S82.142A Displaced bicondylar fracture of left tibia, initial encounter for closed fracture (principal); N39.0 Urinary tract infection, site not specified; D62 Acute posthemorrhagic anemia; S92.252A Displaced fracture of navicular [scaphoid] of left foot, initial encounter for closed fracture; W19.XXXA Unspecified fall, initial encounter; I10 Essential (primary) hypertension; E03.9 Hypothyroidism, unspecified; Z86.12 Personal history of poliomyelitis; F32.9 Major depressive disorder, single episode, unspecified; F41.9 Anxiety disorder, unspecified; D50.9 Iron deficiency anemia, unspecified; M17.12 Unilateral primary osteoarthritis, left knee

== ENCOUNTER 2018-12-28 16:27 | Inpatient (IN) | payer MEDICARE ==
[~2018-12-28] VITALS: Ht 167.6 cm; Wt 86.4 kg
[2018-12-28 18:01] VITALS: BP 188/88
[2018-12-28 18:13] LABS: BASOPHILS 0.2 % (0-2); EOSINOPHILS 0.7 % (0-7); HEMATOCRIT 34.5 % (36.0-48.0); HEMOGLOBIN 11.4 g/dL (12-16); IMMATURE GRANULOCYTES 0.2 % (0-5); LYMPHOCYTES 31.3 % (15-50); MCV 81.6 fL (80.0-100.0); MEAN PLATELET VOLUME 9.4 fL (7.4-10.4); MONOCYTES 8.3 % (2-11); NEUTROPHILS 59.3 % (40-80); PLATELET COUNT 393 10x3/uL (130-400); RBC 4.23 10x6/uL (4.00-5.40); RDW 21.2 % (11.5-14.5); WBC 8.2 10x3/uL (4.8-10.8)
[2018-12-28 18:28] LABS: ALBUMIN 3.4 g/dL (3.4-5.0); ALKALINE PHOSPHATASE 109 U/L (46-116); ALT (SGPT) 17 U/L (10-68); BILIRUBIN - TOTAL 0.59 mg/dL (0.2-1.3); CALC OSMOLALITY 287 mosm/kg (275-300); CALCIUM 8.7 mg/dL (8.5-10.1); CARBON DIOXIDE 28.2 mmol/L (21.0-32.0); CHLORIDE - SERUM 106 mmol/L (98-107); CREATININE - SERUM 0.7 mg/dL (0.6-1.3); GLUCOSE 104 mg/dL (74-106); PROTEIN - SERUM 6.9 g/dL (6.4-8.2); SODIUM 145 mmol/L (136-145); UREA NITROGEN 9 mg/dL (7-18); eGFR NON AFRICAN AMERICAN 87 mL/min (90-120)
[2018-12-28 18:37] VITALS: BP 160/65
[2018-12-28 18:37] LABS: APTT 29.4 SECONDS (22.8-39.4); INR 1.11 (0.85-1.17); PROTIME 13.8 SECONDS (11.6-15.0)
[2018-12-28 18:38] LABS: CKMB 0.6 U/L (0.0-3.6); CREATINE KINASE 35 UL (21-215); MAGNESIUM - SERUM 1.6 mg/dL (1.8-2.4); TROPONIN-I 0.023 ng/mL (0.000-0.060)
[2018-12-28 19:03] VITALS: BP 156/68
--- NOTE | 2018-12-28 19:50 | NUR ---
SPOKE WITH [facility], AND THE PROVIDER, PROVIDER AGREED TO ADMIT PATIENT FOR HTN CONTROL AND GET CASE AMANGEMENT ON BOARD TO HELP WITH MEDICATIONS AND PCP FOLLOW UP.
[2018-12-28 20:16] VITALS: BP 134/60
--- NOTE | 2018-12-28 20:35 | NUR ---
REPORT FROM GAVIN IN ER RECIEVED. PT WILL BE BROUGHT BY WHEELCHAIR TO ROOM 2117.
--- NOTE | 2018-12-28 20:50 | NUR ---
PT ARRIVED ON UNIT VIA WHEELCHAIR TO ROOM 2116. VS TAKEN. SETTLED INTO BED. CURRENT BP 148/69. NO DISTRESS. WILL BEGIN ADMISSION HISTORY AND ASSESSMENT AND HOME MED VERIFICATION.
[2018-12-28 22:27] VITALS: BP 148/69; Ht 167.6 cm; Wt 86.4 kg
--- NOTE | 2018-12-28 22:59 | NUR ---
MEDICATED WITH IV MORPHINE FOR PAIN IN LEFT ANKLE. PROVIDED DINNER TRAY AND SNACK AT PATIENT REQUEST. WILL MONITOR AND INITIATE PLAN OF CARE.
[2018-12-29] VITALS: BP 150/57
--- NOTE | 2018-12-29 03:46 | NUR ---
PT AWAKE AND C/O PAIN TO LEFT FOOT/ANKLE. MEDICATED WITH MORPHINE 4MG SIVP FOR PAIN. CALL LIGHT IN REACH.
[2018-12-29 04:00] VITALS: BP 136/58
[2018-12-29 06:23] LABS: BASOPHILS 0.2 % (0-2); EOSINOPHILS 0.4 % (0-7); HEMATOCRIT 33.9 % (36.0-48.0); HEMOGLOBIN 11.3 g/dL (12-16); IMMATURE GRANULOCYTES 0.3 % (0-5); LYMPHOCYTES 27.4 % (15-50); MCH 27.4 pg (26.0-34.0); MCHC 33.3 g/dL (31.0-37.0); MCV 82.3 fL (80.0-100.0); MEAN PLATELET VOLUME 10.5 fL (7.4-10.4); MONOCYTES 10.3 % (2-11); NEUTROPHILS 61.4 % (40-80); PLATELET COUNT 406 10x3/uL (130-400); RBC 4.12 10x6/uL (4.00-5.40); RDW 21.4 % (11.5-14.5)
[2018-12-29 06:34] LABS: CALCIUM 8.3 mg/dL (8.5-10.1); CARBON DIOXIDE 24.9 mmol/L (21.0-32.0); CHLORIDE - SERUM 106 mmol/L (98-107); CREATININE - SERUM 0.8 mg/dL (0.6-1.3); GLUCOSE 139 mg/dL (74-106); SODIUM 144 mmol/L (136-145); eGFR NON AFRICAN AMERICAN 75 mL/min (90-120)
[2018-12-29 06:38] LABS: CALC OSMOLALITY 289 mosm/kg (275-300); POTASSIUM - SERUM 2.9 mmol/L (3.5-5.1); UREA NITROGEN 14 mg/dL (7-18)
--- NOTE | 2018-12-29 07:30 | NUR ---
RECEIVED PT IN BED AAOX4 RESP UNLABORED SKIN W/D COLOR WNL IV PATENT TO LT HAND PER PUMP SITE FREE OF REDNESS OR EDEMA DENIES ANY NEEDS OR DISCOMFORT AT THIS TIME
[2018-12-29 08:51] VITALS: BP 144/69
--- NOTE | 2018-12-29 13:46 | NUR ---
PT REFUSES TO WEAR SCDs
[2018-12-29 14:43] VITALS: BP 119/53
--- NOTE | 2018-12-29 20:22 | NUR ---
INITIAL ROUNDS AND ASSESSMENT COMPLETED. PT HAS BEEN ROUNDED ON BY DR BRIGGS AND HE HAS APPROVED CONTINUATION OF HER HOME MEDS. IVF NS @ [facility] INFUSING TO LEFT HAND. NONLABORED RESPIRATIONS ON ROOM AIR. LEFT ANKLE FX ELEVATED ON PILLOW. ABLE TO USE BSC WITH NWB TO LEFT FOOT FOR VOIDING. MONITOR AND CPOC.
--- NOTE | 2018-12-29 20:30 | NUR ---
DR BRIGGS ROUNDED. GAVE ORDERS TO RESTART PT'S HOME PAIN MANAGEMENT ROUNTINE. NOTIFIED HOUSE SUP OF NEED FOR MEDS.
[2018-12-29 21:53] VITALS: BP 155/63
--- NOTE | 2018-12-29 22:36 | NUR ---
PT WAS GIVEN HER BEDTIME MEDS WHICH INCLUDED MS CONTIN 30MG CR AND XANAX 1MG ORAL. AFTER ABOUT 30 MINUTES, PT WAS BACK BEE FARMER LIGHT ASKING FOR A "HIT" (SHOT) OF MORPHINE, BECAUSE THE "GOOD STUFF" HELPED HER ANKLE. EXPLAINED THAT DR BRIGGS SAID TO RESTART HER HOME PAIN MANAGEMENT REGIMEN AND THE IV MORPHINE IS NO LONGER AVAILABLE.
[2018-12-30 04:53] VITALS: BP 138/71
[2018-12-30 05:58] LABS: BASOPHILS 0.3 % (0-2); EOSINOPHILS 1.5 % (0-7); HEMATOCRIT 30.3 % (36.0-48.0); HEMOGLOBIN 9.5 g/dL (12-16); IMMATURE GRANULOCYTES 0.1 % (0-5); LYMPHOCYTES 42.1 % (15-50); MCH 26.3 pg (26.0-34.0); MCHC 31.4 g/dL (31.0-37.0); MCV 83.9 fL (80.0-100.0); MEAN PLATELET VOLUME 9.9 fL (7.4-10.4); MONOCYTES 13.2 % (2-11); NEUTROPHILS 42.8 % (40-80); PLATELET COUNT 368 10x3/uL (130-400); RBC 3.61 10x6/uL (4.00-5.40); RDW 21.6 % (11.5-14.5); WBC 7.1 10x3/uL (4.8-10.8)
[2018-12-30 06:40] LABS: ALBUMIN 2.6 g/dL (3.4-5.0); ALKALINE PHOSPHATASE 89 U/L (46-116); BILIRUBIN - TOTAL 0.46 mg/dL (0.2-1.3); CALCIUM 8.2 mg/dL (8.5-10.1); CARBON DIOXIDE 24.9 mmol/L (21.0-32.0); CHLORIDE - SERUM 107 mmol/L (98-107); CREATININE - SERUM 0.7 mg/dL (0.6-1.3); MAGNESIUM - SERUM 1.5 mg/dL (1.8-2.4); POTASSIUM - SERUM 3.8 mmol/L (3.5-5.1); PROTEIN - SERUM 5.9 g/dL (6.4-8.2); SODIUM 143 mmol/L (136-145); UREA NITROGEN 14 mg/dL (7-18); eGFR NON AFRICAN AMERICAN 87 mL/min (90-120)
[2018-12-30 06:50] LABS: ALT (SGPT) 10 U/L (10-68); CALC OSMOLALITY 284 mosm/kg (275-300); GLUCOSE 88 mg/dL (74-106)
[2018-12-30 08:50] VITALS: BP 154/67
[2018-12-30 11:53] VITALS: BP 146/79
[2018-12-30 15:42] VITALS: BP 144/84
--- NOTE | 2018-12-30 17:56 | MORECARE ---
CASE MANAGEMENT DISCHARGE SUMMARY PATIENT: MATA MCCONNELL UNIT: [id number] ADM DATE: 12/28/18 AGE: 73 : [birth year] SEX: F ROOM/BED: D.[facility]7 AUTHOR: CHARLES GÓMEZ PHYSICIAN: REFERRING PHYSICIAN: CRYSTAL BARBOSA MD DATE OF SERVICE: 12/30/18 Discharge Plan Patient Name: MATA MCCONNELL [facility] [facility] 1945 Planned Disposition: Home Anticipated Discharge Date: 12/31/18 Discharge Date: Expected LOS: 3 Initial Reviewer: [id number] Initial Review Date: 12/30/2018 Generated: 12/30/18 6:56 pm Patient Name: MATA MCCONNELL Page [phone] at 1756 All edits/amendments must be made on the electronic document DICTATION DATE: 12/30/181754 INFORMATION SYSTEMS SECURITY MANAGER: DONAL 12/30/181754 RPT#: [id number] DC DATE: STATUS: ADM IN [facility] [address] [place] [address] END OF REPORT
--- NOTE | 2018-12-30 18:04 | MORECARE ---
CASE MANAGEMENT DISCHARGE SUMMARY PATIENT: MATA MCCONNELL UNIT: [id number] ADM DATE: 12/28/18 AGE: 73 : [birth year] SEX: F ROOM/BED: D.3 AUTHOR: CHARLES GÓMEZ PHYSICIAN: REFERRING PHYSICIAN: CRYSTAL BARBOSA MD DATE OF SERVICE: 12/30/18 Discharge Plan Patient Name: MATA MCCONNELL [facility] [facility] 1945 Planned Disposition: Home Anticipated Discharge Date: 12/31/18 Discharge Date: Expected LOS: 3 Initial Reviewer: [email or web address] Initial Review Date: 12/30/2018 Generated: 12/30/18 7:04 pm DCPIA - Discharge Planning Initial Assessment Updated by [id number]: Eliud Charles on 12/30/18 5:58 pm * Is the patient Alert and Oriented? Yes * How many steps to enter\exit or inside your home? * PCP DR RYLIE CALABRESE * [facility] * Preadmission Environment Home with Family * ADLs Independent * Equipment Walker * Other Equipment NO MEDICAL EQUIPMENT PROVIDER PREFERENCE * List name and contact numbers for known caregivers / representatives who currently or will assist patient after discharge: KLEBER MCCONNELL (HEARING IMPAIRED) SPOUSE, VIJAY MCCONNELL, SON, * Verbal permission to speak to the caregivers and representatives has been obtained from the patient. N/A * Community resources currently utilized Home Health * Please name any agencies selected above. [facility] * Additional services required to return to the preadmission environment? No * Can the patient safely return to the preadmission environment? Yes * Has this patient been hospitalized within the prior 30 days at any hospital? No Last DP export: 12/30/18 4:56 p Patient Name: MATA MCCONNELL Page [phone] at 1804 All edits/amendments must be made on the electronic document DICTATION DATE: 12/30/181803 SADDLE MECHANIC: DONAL 12/30/181803 RPT#: [id number] DC DATE: STATUS: ADM IN [address] [place] [address] END OF REPORT
--- NOTE | 2018-12-30 18:20 | MORECARE ---
CASE MANAGEMENT DISCHARGE SUMMARY PATIENT: MATA MCCONNELL UNIT: [id number] ADM DATE: 12/28/18 AGE: 73 : 47 SEX: F ROOM/BED: D.0311 AUTHOR: DALIA,DOC PHYSICIAN: REFERRING PHYSICIAN: CRYSTAL BARBOSA MD DATE OF SERVICE: 12/30/18 Discharge Plan Patient Name: MATA MCCONNELL Facility: [facility]:[place] : 1945 Planned Disposition: Home Anticipated Discharge Date: 12/31/18 Discharge Date: Expected LOS: 3 Initial Reviewer: [email or web address] Initial Review Date: 12/30/2018 Generated: 12/30/18 7:20 pm Comments DCP- Discharge Planning Updated by [id number]: Eliud Charles on 12/30/18 5:[address] Patient Name: MATA MCCONNELL Encounter No: [id number] : 1945 Primary Insurance: HUMANA CHOICE PPO MCR ADVANT Anticipated DC Date: 12-31-2018 Planned Disposition: Home DISCHARGE PLANNING NOTE: CM MET WITH PT IN ROOM TO DISCUSS DISCHARGE PLANNING AND NEEDS. PT REPORTS LIVING AT HOME INDEPENDENTLY WITH HER SPOUSE AT THE [facility]. PT HAS STANDARD WALKER WITH NO MEDICAL EQUIPMENT PROVIDER PREFERENCE. PT HAS [facility] DOING NURSING ONLY, THEY TOLD HER THEY CANNOT DO THERAPY THE HOTEL ROOM IS TOO SMALL. PT HAS NO OUTSIDE SERVICES ASSISTING IN THE HOME. CM DISCUSSED AVAILABILITY OF HOME HEALTH, REHAB SERVICES AND MEDICAL EQUIPMENT. PT DENIES DISCHARGE NEEDS, REPORTS SHE WILL TAKE A TAXI HOME AT DISCHARGE. IMPORTANT MESSAGE FROM MEDICARE PROVIDED AND EXPLAINED. HOME HEALTH LISTING PROVIDED, CHOICE SIGNED FOR [facility]. PT DENIES BEING HOMELESS LISTED IN EMERGENCY ROOM RECORDS. PT STATES IT IS NOT AGAINST TO LIVE IN A HOTEL. CM DISCUSSED PT NOT FILLING HER MEDICATION. PT STATES THAT SHE DID NOT HAVE THE MONEY AND DID NOT GET HER MEDICINE. PT STATES IT IS NOT AGAINST THE LAW TO NOT GET MY MEDICATIONS, IS IT? CM EXPLAINED THAT IT IS NOT AGAINST THE LAW, BUT IS HAVING SEVERE MEDICAL CONSEQUENCES AND COULD LEAD TO HER . PT STATES SHE IS DOING OK NOW. CM POINTED OUT THAT SHE WAS IN THE HOSPITAL. PT STATES THAT CM HAS A POINT AND THAT SHE SHOULD HAVE GOT HER MEDICINE BUT "NO ONE" TOLD HER SHE HAD TO TAKE IT AND HOW IMPORTANT IT REALLY IS. PT REPORTS HAVING [facility] COVERAGE AND REPORTS PAYING "$21 FOR ALL MY MEDICINE." CM DISCUSSED A PERSONAL SUPPORT SYSTEM WELL COMMUNITY RESOURCES AVAILABLE TO ASSIST IN EMERGENCY. PT STATES SHE HAS GOTTEN THIS FAR IN LIFE ON HER OWN AND DID NOT ASK FOR HELP. CM DISCUSSED AGAIN IMPORTANTANCE OF TAKING MEDICATIONS PRECRIBED. PT STATES SHE HAS BILLS TO PAY AND THEY HAVE TO PRIORITIZE EXPENSES. THEY ARE TRYING TO GET ENOUGH MONEY TO RENT A NEW APARTMENT. PT GETS $790 MONTHLY IN SOCIAL SECURITY, HER SPOUSE GETS $1100 MONTH IN SOCIAL SECURITY. PT GETS HER CHECK THE 2ND WEEK OF THE MONTH AND HER SPOUSE GETS HIS THE 3RD WEEK OF THE MONTH. PT'S ADULT SON DOES STAY WITH THEM SOMETIMES AND HAS INCOME FROM A JOB. PT STATES SHE GETS PAID ON SUNDAY AND WILL FILL HER MEDICATIONS THEN NOW THAT SHE KNOWS HOW IMPORTANT IT IS. CM DISCUSSED REHAB PLACEMENT. PT DECLINES AND REPORTS SHE IS GOING HOME AT DISCHARGE. CM SPOKE TO [facility] OF [facility], THEY WILL NOT ACCEPT PT PT IS NOT FILLING HER MEDICATION AND THERE IS "NOTHING FOR HOME HEALTH" TO ASSIST WITH. [facility] REPORTS THAT ADULT PROTECTIVE SERVICES HAS EVALUATED PT IN HER CURRENT LIVING SITUATION AT THE [facility] AND FOUND NO ISSUES. CM SPOKE TO PT IN ROOM, NOTIFIED THAT HOME HEALTH WILL NOT SEE PT AT HOME. PT REPORTS "OK" AND AGAIN ASSURES CM THAT SHE WILL FILL HER MEDICATION AND TAKE IT LIKE SHE IS SUPPOSED TOO. CM EDUCATED PT ON HOW TO CONTACT HER PRIMARY DOCTOR IF SHE NEEDS FURTHER SERVICES AFTER DISCHARGE. CM PROVIDED PT WITH [employer]IS[employer]NG OF LOW INCOME APARTMENTS WELL CONTACT INFORMATION FOR [place] [employer] AUTHORITY TO ASSIST WITH PT'S SEARCH FOR MORE STABLE HOUSING. PT PLANS TO DISCHARGE HOME, INFORMED CM THAT SHE WILL FILL AND TAKE HER MEDICATION STARTING ON 01-01-19 WHEN SHE GETS PAID. PT REPORTS HAVING FUNDS TO PAY FOR HER TAXI RIDE HOME. CM HAS PROVIDED PT WITH COMMUNITY RESOURCES TO REQUEST ASSISTANCE IF NEEDED, PT ALSO HAS FAMILY SHE MAY REQUEST ASSISTANCE FROM IF NEEDED. Eliud Charles, CASE MANAGEMENT DCPIA - Discharge Planning Initial Assessment Updated by [id number]: Eliud Charles on 12/30/18 5:58 pm * Is the patient Alert and Oriented? Yes * How many steps to enter\\exit or inside your home? * PCP DR RYLIE CALABRESE * Pharmacy [facility] [place] * Preadmission Environment Home with Family * ADLs Independent * Equipment Walker * Other Equipment NO MEDICAL EQUIPMENT PROVIDER PREFERENCE * List name and contact numbers for known caregivers / representatives who currently or will assist patient after discharge: KLEBER MCCONNELL (HEARING IMPAIRED) SPOUSE, VIJAY MCCONNELL, SON, * Verbal permission to speak to the caregivers and representatives has been obtained from the patient. N/A * Community resources currently utilized Home Health * Please name any agencies selected above. [facility] * Additional services required to return to the preadmission environment? No * Can the patient safely return to the preadmission environment? Yes * Has this patient been hospitalized within the prior 30 days at any hospital? No Last DP export: 12/30/18 5:04 p Patient Name: MATA MCCONNELL Page 28767 at 1820 All edits/amendments must be made on the electronic document DICTATION DATE: 12/30/181819 STATISTICAL MACHINE MECHANIC: DONAL 12/30/181819 RPT#: [id number] DC DATE: STATUS: ADM IN [facility] [address] [place] [address] END OF REPORT
--- NOTE | 2018-12-30 20:23 | NUR ---
CALL FROM SON. UPDATE GIVEN. PT NOW TALKING TO SON ON PHONE.
--- NOTE | 2018-12-30 20:42 | NUR ---
BEDTIME MEDICATIONS GIVEN. PT NOW TALKING ON THE PHONE WITH HER SON. STATES PAIN 8/10 TO LEFT LEG. DISCHARGE PLANNING QUESTIONS ASKED. MONITOR AND CPOC.
[2018-12-30 21:03] VITALS: BP 161/79
--- NOTE | 2018-12-30 21:41 | NUR ---
PT VARIETY PERFORMER LIGHT ASKING VARIOUS STAFF TO BRING HER PAIN MEDS. EXPLAINED TO PATIENT THAT SHE HAD JUST BEEN GIVEN HER MORPHINE CR AND HER XANAX. PT FEELS THIS IS NOT ENOUGH AND WANTS MORE. INSTRUCTED PT THAT SHE CAN HAVE PRN NORCO 4 HOURS AFTER TAKING THE LISTED MEDS ALREADY RECIEVED. PT DISPLAYING NO FACIAL GRIMACES OR S/S OF PAIN. SHE COMES ACROSS CONFUSED AND UNABLE TO COMPREHEND "TIME" AND KEEPS TELLING NURSE SHE DOES NOT UNDERSTAND "TIME". WILL MONITOR. MEDICATE PER ORDERS.
--- NOTE | 2018-12-31 01:17 | NUR ---
PT HAS BEEN REPEATEDLY BENDER MACHINE OPERATOR LIGHT ASKING FOR PAIN MEDS. PT TEACHING ON PAIN MANAGEMENT MEDS AND THE WAY THEY ARE SET UP. PT DOES NOT SEEM TO COMPREHEND OR RETAIN ANY OF THIS INFORMATION. PROVIDED WITH NORCO TAB AT THIS TIME AND PT IMMEDIATELY ASKED WHEN SHE WILL BE ABLE TO HAVE HER MORPHINE AND XANAX. ERASE BOARD USED TO LIST NEXT TIME NORCO AVAILABLE IF SHE REQUESTS IT AND NEXT TIME THE MORPHINE AND XANAX IS SCHEDULED.
--- NOTE | 2018-12-31 05:03 | NUR ---
UA SPECIMEN COLLECTED AND SENT TO LAB. REQUESTED PAIN PILL (NORCO) AND OTHER AM MEDS GIVEN.
--- NOTE | 2018-12-31 05:44 | NUR ---
PT NOW RESTING WITH EYES CLOSED. MONITOR AND CPOC.
[2018-12-31 06:25] VITALS: BP 141/69
[2018-12-31 07:01] LABS: ALBUMIN 2.7 g/dL (3.4-5.0); ALKALINE PHOSPHATASE 82 U/L (46-116); ALT (SGPT) 12 U/L (10-68); BILIRUBIN - TOTAL 0.47 mg/dL (0.2-1.3); CALC OSMOLALITY 278 mosm/kg (275-300); CALCIUM 8.4 mg/dL (8.5-10.1); CARBON DIOXIDE 27.9 mmol/L (21.0-32.0); CHLORIDE - SERUM 105 mmol/L (98-107); CREATININE - SERUM 0.7 mg/dL (0.6-1.3); GLUCOSE 93 mg/dL (74-106); POTASSIUM - SERUM 4.2 mmol/L (3.5-5.1); PROTEIN - SERUM 5.8 g/dL (6.4-8.2); SODIUM 139 mmol/L (136-145); UREA NITROGEN 14 mg/dL (7-18); eGFR NON AFRICAN AMERICAN 87 mL/min (90-120)
[2018-12-31 07:03] LABS: MAGNESIUM - SERUM 1.9 mg/dL (1.8-2.4)
[2018-12-31 07:47] LABS: BASOPHILS 0.2 % (0-2); EOSINOPHILS 1.7 % (0-7); HEMATOCRIT 29.7 % (36.0-48.0); HEMOGLOBIN 9.2 g/dL (12-16); IMMATURE GRANULOCYTES 0.2 % (0-5); LYMPHOCYTES 28.2 % (15-50); MCV 83.9 fL (80.0-100.0); MEAN PLATELET VOLUME 10.2 fL (7.4-10.4); MONOCYTES 12.6 % (2-11); NEUTROPHILS 57.1 % (40-80); PLATELET COUNT 396 10x3/uL (130-400); RBC 3.54 10x6/uL (4.00-5.40); RDW 21.3 % (11.5-14.5); WBC 8.7 10x3/uL (4.8-10.8)
[2018-12-31 08:27] LABS: APPEARANCE CLEAR (CLEAR); COLOR YELLOW (YELLOW)
[2018-12-31 08:28] LABS: BACTERIA MANY /hpf (NONE SEEN); BILIRUBIN NEGATIVE (NEGATIVE); EPITHELIAL CELLS 0-5 /hpf (0-5); GLUCOSE NEGATIVE (NEGATIVE); KETONE NEGATIVE (NEGATIVE); MUCUS <1+ /lpf (NONE SEEN); NITRITE NEGATIVE (NEGATIVE); PROTEIN NEGATIVE (NEGATIVE); UROBILINOGEN NORMAL (NORMAL); WHITE CELLS - URINE 0-5 /hpf (0-5)
[2018-12-31 09:13] VITALS: BP 157/75
--- NOTE | 2018-12-31 09:41 | NUR ---
UP AMBULATING HALLWAY WITH PT ASSIST.
[2018-12-31] MEDS ORDERED: METOPROLOL TART50 MG PO (10:41)
--- NOTE | 2018-12-31 11:53 | MORECARE ---
CASE MANAGEMENT DISCHARGE SUMMARY PATIENT: MATA MCCONNELL UNIT: [id number] ADM DATE: 12/28/18 AGE: 73 : [birth year] SEX: F ROOM/BED: D.5553 AUTHOR: DALIADOC PHYSICIAN: REFERRING PHYSICIAN: CRYSTAL BARBOSA MD DATE OF SERVICE: 12/31/18 Discharge Plan Patient Name: MATA MCCONNELL Facility: [facility]:[place] : 1945 Planned Disposition: Home Anticipated Discharge Date: 12/31/18 Discharge Date: Expected LOS: 3 Initial Reviewer: [id number] Initial Review Date: 12/30/2018 Generated: 12/31/18 12:53 pm Comments DCP- Discharge Planning Updated by [email or web address]: Yenny Long on 12/31/18 10:[address] Patient Name: MATA MCCONNELL Encounter No: [id number] : 1945 Primary Insurance: [employer] CHOICE PPO MCR ADVANT Anticipated DC Date: 12-31-2018 Planned Disposition: Home External Planned Provider: : DCP follow-up note: Patient in agreement with discharge plan. No changes to plan. Patient states will need a cab called for her when dc'd. States son and will be at home when she gets there. Case management will follow and assist as needed. IM signed. Yenny Long DCP- Discharge Planning Updated by [id number]: Eliud Charles on 12/30/18 5:[address] Patient Name: MATA MCCONNELL Encounter No: [id number] : 1945 Primary Insurance: [employer] CHOICE PPO MCR ADVANT Anticipated DC Date: 12-31-2018 Planned Disposition: Home DISCHARGE PLANNING NOTE: CM MET WITH PT IN ROOM TO DISCUSS DISCHARGE PLANNING AND NEEDS. PT REPORTS LIVING AT HOME INDEPENDENTLY WITH HER SPOUSE AT THE [facility]. PT HAS STANDARD WALKER WITH NO MEDICAL EQUIPMENT PROVIDER PREFERENCE. PT HAS [facility] DOING NURSING ONLY, THEY TOLD HER THEY CANNOT DO THERAPY THE HOTEL ROOM IS TOO SMALL. PT HAS NO OUTSIDE SERVICES ASSISTING IN THE HOME. CM DISCUSSED AVAILABILITY OF HOME HEALTH, REHAB SERVICES AND MEDICAL EQUIPMENT. PT DENIES DISCHARGE NEEDS, REPORTS SHE WILL TAKE A TAXI HOME AT DISCHARGE. IMPORTANT MESSAGE FROM MEDICARE PROVIDED AND EXPLAINED. HOME HEALTH LISTING PROVIDED, CHOICE SIGNED FOR [facility]. PT DENIES BEING HOMELESS LISTED IN EMERGENCY ROOM RECORDS. PT STATES IT IS NOT AGAINST TO LIVE IN A HOTEL. CM DISCUSSED PT NOT FILLING HER MEDICATION. PT STATES THAT SHE DID NOT HAVE THE MONEY AND DID NOT GET HER MEDICINE. PT STATES IT IS NOT AGAINST THE LAW TO NOT GET MY MEDICATIONS, IS IT? CM EXPLAINED THAT IT IS NOT AGAINST THE LAW, BUT IS HAVING SEVERE MEDICAL CONSEQUENCES AND COULD LEAD TO HER . PT STATES SHE IS DOING OK NOW. CM POINTED OUT THAT SHE WAS IN THE HOSPITAL. PT STATES THAT CM HAS A POINT AND THAT SHE SHOULD HAVE GOT HER MEDICINE BUT "NO ONE" TOLD HER SHE HAD TO TAKE IT AND HOW IMPORTANT IT REALLY IS. PT REPORTS HAVING PRESCRIPTION DRUG COVERAGE AND REPORTS PAYING "$21 FOR ALL MY MEDICINE." CM DISCUSSED A PERSONAL SUPPORT SYSTEM WELL COMMUNITY RESOURCES AVAILABLE TO ASSIST IN EMERGENCY. PT STATES SHE HAS GOTTEN THIS FAR IN LIFE ON HER OWN AND DID NOT ASK FOR HELP. CM DISCUSSED AGAIN IMPORTANTANCE OF TAKING MEDICATIONS PRECRIBED. PT STATES SHE HAS BILLS TO PAY AND THEY HAVE TO PRIORITIZE EXPENSES. THEY ARE TRYING TO GET ENOUGH MONEY TO RENT A NEW APARTMENT. PT GETS $790 MONTHLY IN SOCIAL SECURITY, HER SPOUSE GETS $1100 MONTH IN SOCIAL SECURITY. PT GETS HER CHECK THE 2ND WEEK OF THE MONTH AND HER SPOUSE GETS HIS THE 3RD WEEK OF THE MONTH. PT'S ADULT SON DOES STAY WITH THEM SOMETIMES AND HAS INCOME FROM A JOB. PT STATES SHE GETS PAID ON SUNDAY AND WILL FILL HER MEDICATIONS THEN NOW THAT SHE KNOWS HOW IMPORTANT IT IS. CM DISCUSSED REHAB PLACEMENT. PT DECLINES AND REPORTS SHE IS GOING HOME AT DISCHARGE. CM SPOKE TO MODESTO OF [facility], THEY WILL NOT ACCEPT PT PT IS NOT FILLING HER MEDICATION AND THERE IS "NOTHING FOR HOME HEALTH" TO ASSIST WITH. MODESTO REPORTS THAT ADULT PROTECTIVE SERVICES HAS EVALUATED PT IN HER CURRENT LIVING SITUATION AT THE [facility] AND FOUND NO ISSUES. NEYDA SPOKE TO PT IN ROOM, NOTIFIED THAT HOME HEALTH WILL NOT SEE PT AT HOME. PT REPORTS "OK" AND AGAIN ASSURES CM THAT SHE WILL FILL HER MEDICATION AND TAKE IT LIKE SHE IS SUPPOSED TOO. CM EDUCATED PT ON HOW TO CONTACT HER PRIMARY DOCTOR IF SHE NEEDS FURTHER SERVICES AFTER DISCHARGE. CM PROVIDED PT WITH LISITNG OF LOW INCOME APARTMENTS WELL CONTACT INFORMATION FOR [facility] AUTHORITY TO ASSIST WITH PT'S SEARCH FOR MORE STABLE HOUSING. PT PLANS TO DISCHARGE HOME, INFORMED CM THAT SHE WILL FILL AND TAKE HER MEDICATION STARTING ON 01-01-19 WHEN SHE GETS PAID. PT REPORTS HAVING FUNDS TO PAY FOR HER TAXI RIDE HOME. CM HAS PROVIDED PT WITH COMMUNITY RESOURCES TO REQUEST ASSISTANCE IF NEEDED, PT ALSO HAS FAMILY SHE MAY REQUEST ASSISTANCE FROM IF NEEDED. Eliud Charles, CASE MANAGEMENT DCPIA - Discharge Planning Initial Assessment Updated by [id number]: Eliud Charles on 12/30/18 5:58 pm * Is the patient Alert and Oriented? Yes * How many steps to enter\\exit or inside your home? * PCP DR RYLIE CALABRESE * Pharmacy [facility] [place] * Preadmission Environment Home with Family * ADLs Independent * Equipment Walker * Other Equipment NO MEDICAL EQUIPMENT PROVIDER PREFERENCE * List name and contact numbers for known caregivers / representatives who currently or will assist patient after discharge: KLEBER MCCONNELL (HEARING IMPAIRED) SPOUSE, VIJAY MCCONNELL, SON, * Verbal permission to speak to the caregivers and representatives has been obtained from the patient. N/A * Community resources currently utilized Home Health * Please name any agencies selected above. [facility] * Additional services required to return to the preadmission environment? No * Can the patient safely return to the preadmission environment? Yes * Has this patient been hospitalized within the prior 30 days at any hospital? No Coverage Notice Reviewer: [id number] [place] Long Notice Issued Date-Time: 12/31/2018 11:43 Notice Type: IM Discharge Notice Notice Delivered To: Patient Relationship to Patient: Helicopter Engineer Name: Delivery Method: HAND - Hand Delivered Rebeka Days: Prior Verbal Notification: Recipient Understood Notice: Yes Recipient Signature: Yes Med Rec Note Co-signed by Attending: Coverage Notice Comment: Last DP export: 12/30/18 5:20 p Patient Name: MATA MCCONNELL Page [id number] at 1153 All edits/amendments must be made on the electronic document DICTATION DATE: 12/31/18 1152 REGISTRATION OFFICER: DONAL 12/31/18 1152 RPT#: [id number] DC DATE: STATUS: ADM IN [facility] [address] [place] [address] END OF REPORT
--- NOTE | 2018-12-31 13:00 | NUR ---
IV DCD. DC PLANS GIVEN. UNDERSTANDING VOICED. ESCORTED TO CAR BY W/C.
--- NOTE | 2019-01-01 10:56 | MORECARE ---
CASE MANAGEMENT DISCHARGE SUMMARY PATIENT: MATA MCCONNELL UNIT: [id number] ADM DATE: 12/28/18 AGE: 73 : [birth year] SEX: F ROOM/BED: D.6166 AUTHOR: DALIADOC PHYSICIAN: REFERRING PHYSICIAN: CRYSTAL BARBOSA MD DATE OF SERVICE: 01/01/19 Discharge Plan Patient Name: MATA MCCONNELL Facility: [facility]:[place] : 1945 Planned Disposition: Home Anticipated Discharge Date: 12/31/18 Discharge Date: 12/31/2018 Expected LOS: 3 Initial Reviewer: [id number] Initial Review Date: 12/30/2018 Generated: 01/01/19 11:56 am Comments DCP- Discharge Planning Updated by [id number]: Yenny Long on 12/31/18 10:[address] Patient Name: MATA MCCONNELL Encounter No: [id number] : 1945 Primary Insurance: [employer] CHOICE PPO MCR ADVANT Anticipated DC Date: 12-31-2018 Planned Disposition: Home External Planned Provider: : DCP follow-up note: Patient in agreement with discharge plan. No changes to plan. Patient states will need a cab called for her when dc'd. States son and will be at home when she gets there. Case management will follow and assist as needed. IM signed. Yenny Long DCP- Discharge Planning Updated by [id number]: Eliud Charles on 12/30/18 5:[address] Patient Name: MATA MCCONNELL Encounter No: [id number] : 1945 Primary Insurance: [employer] CHOICE PPO MCR ADVANT Anticipated DC Date: 12-31-2018 Planned Disposition: Home DISCHARGE PLANNING NOTE: CM MET WITH PT IN ROOM TO DISCUSS DISCHARGE PLANNING AND NEEDS. PT REPORTS LIVING AT HOME INDEPENDENTLY WITH HER SPOUSE AT THE [facility]. PT HAS STANDARD WALKER WITH NO MEDICAL EQUIPMENT PROVIDER PREFERENCE. PT HAS [facility] DOING NURSING ONLY, THEY TOLD HER THEY CANNOT DO THERAPY THE HOTEL ROOM IS TOO SMALL. PT HAS NO OUTSIDE SERVICES ASSISTING IN THE HOME. CM DISCUSSED AVAILABILITY OF HOME HEALTH, REHAB SERVICES AND MEDICAL EQUIPMENT. PT DENIES DISCHARGE NEEDS, REPORTS SHE WILL TAKE A TAXI HOME AT DISCHARGE. IMPORTANT MESSAGE FROM MEDICARE PROVIDED AND EXPLAINED. HOME HEALTH LISTING PROVIDED, CHOICE SIGNED FOR [facility]. PT DENIES BEING HOMELESS LISTED IN EMERGENCY ROOM RECORDS. PT STATES IT IS NOT AGAINST TO LIVE IN A HOTEL. CM DISCUSSED PT NOT FILLING HER MEDICATION. PT STATES THAT SHE DID NOT HAVE THE MONEY AND DID NOT GET HER MEDICINE. PT STATES IT IS NOT AGAINST THE LAW TO NOT GET MY MEDICATIONS, IS IT? CM EXPLAINED THAT IT IS NOT AGAINST THE LAW, BUT IS HAVING SEVERE MEDICAL CONSEQUENCES AND COULD LEAD TO HER . PT STATES SHE IS DOING OK NOW. CM POINTED OUT THAT SHE WAS IN THE HOSPITAL. PT STATES THAT CM HAS A POINT AND THAT SHE SHOULD HAVE GOT HER MEDICINE BUT "NO ONE" TOLD HER SHE HAD TO TAKE IT AND HOW IMPORTANT IT REALLY IS. PT REPORTS HAVING PRESCRIPTION DR[employer] COVERAGE AND REPORTS PAYING "$21 FOR ALL MY MEDICINE." CM DISCUSSED A PERSONAL SUPPORT SYSTEM WELL COMMUNITY RESOURCES AVAILABLE TO ASSIST IN EMERGENCY. PT STATES SHE HAS GOTTEN THIS FAR IN LIFE ON HER OWN AND DID NOT ASK FOR HELP. CM DISCUSSED AGAIN IMPORTANTANCE OF TAKING MEDICATIONS PRECRIBED. PT STATES SHE HAS BILLS TO PAY AND THEY HAVE TO PRIORITIZE EXPENSES. THEY ARE TRYING TO GET ENOUGH MONEY TO RENT A NEW APARTMENT. PT GETS $790 MONTHLY IN SOCIAL SECURITY, HER SPOUSE GETS $1100 MONTH IN SOCIAL SECURITY. PT GETS HER CHECK THE 2ND WEEK OF THE MONTH AND HER SPOUSE GETS HIS THE 3RD WEEK OF THE MONTH. PT'S ADULT SON DOES STAY WITH THEM SOMETIMES AND HAS INCOME FROM A JOB. PT STATES SHE GETS PAID ON SUNDAY AND WILL FILL HER MEDICATIONS THEN NOW THAT SHE KNOWS HOW IMPORTANT IT IS. CM DISCUSSED REHAB PLACEMENT. PT DECLINES AND REPORTS SHE IS GOING HOME AT DISCHARGE. CM SPOKE TO MODESTO OF [facility], THEY WILL NOT ACCEPT PT PT IS NOT FILLING HER MEDICATION AND THERE IS "NOTHING FOR HOME HEALTH" TO ASSIST WITH. [facility] REPORTS THAT ADULT PROTECTIVE SERVICES HAS EVALUATED PT IN HER CURRENT LIVING SITUATION AT THE [facility] AND FOUND NO ISSUES. NEYDA SPOKE TO PT IN ROOM, NOTIFIED THAT HOME HEALTH WILL NOT SEE PT AT HOME. PT REPORTS "OK" AND AGAIN ASSURES CM THAT SHE WILL FILL HER MEDICATION AND TAKE IT LIKE SHE IS SUPPOSED TOO. CM EDUCATED PT ON HOW TO CONTACT HER PRIMARY DOCTOR IF SHE NEEDS FURTHER SERVICES AFTER DISCHARGE. CM PROVIDED PT WITH LISITNG OF LOW INCOME APARTMENTS WELL CONTACT INFORMATION FOR [facility] TO ASSIST WITH PT'S SEARCH FOR MORE STABLE HOUSING. PT PLANS TO DISCHARGE HOME, INFORMED CM THAT SHE WILL FILL AND TAKE HER MEDICATION STARTING ON 01-01-19 WHEN SHE GETS PAID. PT REPORTS HAVING FUNDS TO PAY FOR HER TAXI RIDE HOME. CM HAS PROVIDED PT WITH COMMUNITY RESOURCES TO REQUEST ASSISTANCE IF NEEDED, PT ALSO HAS FAMILY SHE MAY REQUEST ASSISTANCE FROM IF NEEDED. Eliud Charles, CASE MANAGEMENT DCPIA - Discharge Planning Initial Assessment Updated by [id number]: Eliud Charles on 12/30/18 5:58 pm * Is the patient Alert and Oriented? Yes * How many steps to enter\\exit or inside your home? * PCP DR RYLIE CALABRESE * Pharmacy [facility] [place] * Preadmission Environment Home with Family * ADLs Independent * Equipment Walker * Other Equipment NO MEDICAL EQUIPMENT PROVIDER PREFERENCE * List name and contact numbers for known caregivers / representatives who currently or will assist patient after discharge: KLEBER MCCONNELL (HEARING IMPAIRED) SPOUSE, VIJAY MCCONNELL, SON, * Verbal permission to speak to the caregivers and representatives has been obtained from the patient. N/A * Community resources currently utilized Home Health * Please name any agencies selected above. [facility] * Additional services required to return to the preadmission environment? No * Can the patient safely return to the preadmission environment? Yes * Has this patient been hospitalized within the prior 30 days at any hospital? No Coverage Notice Reviewer: [id number] [place] Long Notice Issued Date-Time: 12/31/2018 11:43 Notice Type: IM Discharge Notice Notice Delivered To: Patient Relationship to Patient: Hospital Mortician Name: Delivery Method: HAND - Hand Delivered Rebeka Days: Prior Verbal Notification: Recipient Understood Notice: Yes Recipient Signature: Yes Med Rec Note Co-signed by Attending: Coverage Notice Comment: Last DP export: 12/31/18 10:53 a Patient Name: MATA MCCONNELL Page [id number] at 1056 All edits/amendments must be made on the electronic document DICTATION DATE: 01/01/19 1056 FUR BLOWING MACHINE ATTENDANT: DONAL 01/01/19 1056 RPT#: [id number] DC DATE:12/31/18 STATUS: DIS IN [facility] [address] [place] [address] END OF REPORT
== END 2018-12-31 13:05 | disposition home or self-care (01) | DRG 304 ==
LOC: D.ER 16:27 → D.M2 20:11
PROVIDERS: Family Medicine; Internal Medicine Nephrology; ADMIT Emergency Medicine; ATTEND Emergency Medicine
DX: I16.0 Hypertensive urgency (principal); J18.9 Pneumonia, unspecified organism; N39.0 Urinary tract infection, site not specified; T44.7X6A Underdosing of beta-adrenoreceptor antagonists, initial encounter; Z91.138 Patient's unintentional underdosing of medication regimen for other reason; D64.9 Anemia, unspecified; G89.29 Other chronic pain; M19.90 Unspecified osteoarthritis, unspecified site; K21.9 Gastro-esophageal reflux disease without esophagitis; F41.9 Anxiety disorder, unspecified; E03.9 Hypothyroidism, unspecified; Z86.12 Personal history of poliomyelitis